=== PATIENT | female | born 1960 | race Caucasian/White ===

== ENCOUNTER → 2019-10-07 06:00 | Outpatient (CLI) | payer OTHER, SELFPAY ==
--- NOTE | 2019-10-07 13:45 | STRESSREP_ITS ---
Stress Test Report Date: 10-07-19 Procedure: Exercise tolerance test/imaging study Indications: Chest pain; dyspnea Consent: Per the patient Procedure: The patient exercised on a Ry protocol for 7 minutes and 30 seconds completing Stage II and 1 minute and 30 seconds of Stage III achieving a peak heart rate of 136 bpm (83 % predicted maximal heart rate) with a peak blood pressure 160/80 mmHg and a peak MET capacity of 9 METs. The baseline ECG demonstrated sinus bradycardia; low voltage QRS; nonspecific T wave abnormality. The peak exercise ECG demonstrated difficult somatic/motion artifact with no obvious ECG changes. There were no cardiac dysrhythmias pretest, during exercise, or recovery. The functional capacity was considered average. There was no complaint of chest discomfort during exercise or recovery. The examination was discontinued secondary to dyspnea. Impression: 1. Technically adequate (percent predicted maximal heart rate greater than 85%) exercise tolerance test 2. Peak exercise ECG with no obvious ECG changes 3. There were no cardiac dysrhythmias pretest, during exercise, or recovery 4. Nuclear images pending Myocardial perfusion imaging study: Technique: The patient was injected with 11.0 mCi of technetium 99m Cardiolite and subsequently rest SPECT Cardiolite nuclear imaging was obtained in the hor izontal long, vertical long, and short axis views. The patient exercised on a Ry protocol for 7 minutes and 30 seconds completing Stage II and 1 minute and 30 seconds of Stage III achieving a peak heart rate of 136 bpm (83 % predicted maximal heart rate) with a peak blood pressure 160/80 mmHg and a peak MET capacity of 9 METs. The patient was injected with 33.0 mCi of technetium 99m Cardiolite and subsequently stress SPECT Cardiolite nuclear imaging was obtained in the horizontal long, vertical long, and short axis views. A gated Cardiolite study at peak stress was obtained. Interpretation: Rest and stress SPECT Cardiolite nuclear imaging status post realignment, normalization, and attenuation correction, demonstrates the appearance of body motion during image acquisition and at rest of relative uniform tracer uptake. Status post stress there is an area of diminished tracer uptake in portions of the mid anterior segments. There is end systolic thickening and brightening. The gated Cardiolite study demonstrates myocardial thickening and inward wall motion. The reported LVEF is 65 %. Impression: 1. Rest and stress SPECT Cardiolite nuclear imaging demonstrate the appearance of body motion during image acquisition and at rest of relative uniform tracer uptake, however, status post stress there is an area of diminished tracer uptake in portions of the mid anterior segments centrally compatible with the effects of body motion during image acquisition, however, an area of myocardial ischemia cannot necessarily be excluded. 2. The gated Cardiolite study reports an LVEF of 65 %. This note was generated with [employer] software. It may contain incorrect words, spelling, and punctuation that were not noted in checking the note before signing.
== END ==
PROVIDERS: Family Provider Internal Medicine; PCP Internal Medicine; Referring Provider Internal Medicine; Visit Provider Internal Medicine
DX: R06.09 Other forms of dyspnea (principal)
CPT/HCPCS: 78452; 93017; A9500; A4216

== ENCOUNTER 2022-03-09 06:34 | Inpatient (IN) | payer OTHER, SELFPAY ==
[2022-03-09] VITALS (14 sets, daily range): BP systolic 110–158; BP diastolic 56–84; PULSE 45–76; RESP 16–18; TEMP 35.5–36.6; O2SAT 94–100; BMI 38.3
[2022-03-09] MEDS: Lactated Ringers 1,000 ML 15 ML IV ×5 (07:23→15:06)
--- NOTE | 2022-03-09 07:27 | PCM.OPRPT ---
Problems Associated Problem List Diagnoses (1) Lumbar stenosis: Report of Operation Date of Procedure: 03/09/22 Pre-Operative Diagnosis: 1. Lumbar stenosis, L4-5 with spondylosis 2. Lumbar degenerative disc disease L4-5 3. Lumbar spondylolisthesis L4-5 Post-Operative Diagnosis: 1. Lumbar stenosis, L4-5 with spondylosis 2. Lumbar degenerative disc disease L4-5 3. Lumbar spondylolisthesis L4-5 Surgery/Procedure Performed:: 1. L4-5 posterior lumbar interbody fusion 2. Insertion of intervertebral biomechanical device x1 3. Structural allograft for spinal fusion 4. L4 bilateral laminectomies, foraminotomies, facetectomies, decompression of bilateral nerve roots 5. L4-5 posterior lateral fusion 6. Pedicle screw fixation 7. Local autograft for spinal fusion 8. Neuro monitoring bilateral upper and bilateral lower extremities Description of Surgical Findings:: The patient is a 61-year-old female with intractable back and leg pain. Image studies confirm the above diagnoses. She has failed conservative treatment to include medication, physical therapy and injections. The patient opted for operative intervention understanding the risk to include but not limited to infection, bleeding, damage to nerves arteries and veins, possibility of spinal fluid leak, nonunion, hardware failure, continued pain, need for further surgery, deep vein thrombosis, pulmonary embolism, heart attack, risk of stroke or . The patient was identified in the preoperative holding area. There she received preoperative IV antibiotics, Ancef, and was then transferred to the operative suite. Once in the operative suite after general endotracheal anesthesia was established, the patient was transferred to the [place] operating table in the prone position. All bony prominences were padded accordingly. The lumbar spine was prepped and draped in a standard surgical fashion. Bear hugger's were not turned on until the drapes were placed and sealed with Ioban. A midline incision was made and taken down to the lumbodorsal fascia. The fascia was divided and subperiosteal dissection was taken to the level of the transverse processes of L4 and L5 bilaterally. Deep retractors were placed. A bone scalpel was used to make cuts in the lamina of L4 and then a series of rongeurs and Kerrisons were used removing the spinous process and lamina of L4. Then facetectomies of greater than 50% were performed as well as foraminotomies, decompressing the bilateral nerve roots. Given the severity of the stenosis, I needed to perform wide bilateral laminectomies and near complete facetectomies in order to decompress the neural elements, thus creating instability necessitating the fusion. I then proceeded with the posterior lateral interbody fusion. The dura and nerve roots were identified and retracted medially, a 15 blade scalpel was used to make an annulotomy at L4-5 on the left. Endplate elevator, curettes and pituitaries were utilized to remove disc material. Endplates were prepared with a rasp. An appropriate sized intervertebral peek cage device measuring 9 mm was packed with morselized cancellous allograft and then impacted into position completing the posterior lumbar interbody fusion at L4-5. I then proceeded with pedicle screw fixation. Starting points were found at the junction of the superior articular process and transverse process of L4 and L5 bilaterally. A power bur was used for the starting points. Pedicle probes were placed bilaterally and then 6.5 x 45 mm screws were placed at L4 and L5 bilaterally. The screws were tested with intraoperative neurophysiologic monitoring and they tested within normal limits. Connecting rods were secured into place with set screws. I then proceeded with the posterior lateral fusion. This was accomplished by decorticating the transverse processes bilaterally at L4 and L5. This decorticated bone was then bridged with local autograft from the decompression as well as morselized cancellous allograft and DBM therefore completing the posterior lateral fusion at L4-5. The incision was thoroughly irrigated. Tisseel was placed over the dura as a hemostatic agent. A deep drain was placed. The fascia was closed with #1 Vicryl, subcutaneous with 2-0 Vicryl, and skin with 2-0 nylon. A sterile dressing was applied with 4 x 4's ABD and tape. Sponge instrument needle counts were correct at the end of the case. Neurophysiologic monitoring was maintained at baseline throughout the duration of the case. Surgeon: Jayson Arias Type of Anesthesia: General Drains: Hemovac Estimated Blood Loss (mL): 225 mL Fluids Replaced: 330 0 cc Grafts/Implants Used: Unified spine, vitae os, DBM Complications None Admit VTE Documentation VTE Present on Admission: No
--- NOTE | 2022-03-09 07:27 | PCM.PN.ORT ---
Subjective Subjective The patient was seen and examined postoperatively in the PACU. She is having some postop soreness at the surgery site. She denies any other complaints including numbness tingling weakness Objective Data Objective Data Vital Signs: Vital Signs Temp Pulse Resp BP Pulse Ox 97.4 F L 62 18 141/68 H 97 03/09/22 07:17 03/09/22 07:17 03/09/22 07:17 03/09/22 07:17 03/09/22 07:17 Oxygen Delivery Method Room Air Weight: 241 lb 6.4 oz Body Mass Index (BMI) 38.3 Lab / Micro Data Micro: Microbiology 03/06/22 09:39 Nasal Secretion SARS-CoV-2 Antigen (Rapid) - Final Physical Exam Const alert, oriented x3 and no apparent distress General Appearance: cooperative and comfortable HEENT normocephalic and head/scalp atraumatic Eyes EOMs intact bilaterally and conjunctivae normal Neck full ROM General: normal visual inspection Chest inspection of chest normal and palpation of chest normal Resp normal respiratory effort and normal air movement Cardio regular rate, regular rhythm and peripheral pulses 2+ throughout Peripheral Pulses: pulses 2+ throughout GI soft to palpation, non-tender and non-distended Back/Spine Back/Spine Narrative: Dressing clean dry and intact. Drain in place and functioning with small amount of serosanguineous fluid in it Cervical Spine: cervical ROM normal Thoracic Spine / Upper Back: normal to inspection Lumbar Spine / Lower Back: normal to inspection Extremity normal to inspection, full ROM, normal capillary refill, no clubbing, cyanosis or edema and no calf tenderness Peripheral Pulses: Yes pulses 2+ throughout Skin no rashes or lesions noted General Skin Exam: no breakdown Neuro oriented x3, CN's II-XII intact bilaterally, moves all extremities, no focal motor deficits, no sensory deficits noted and deep tendon reflexes 2+ bilaterally Motor Exam: strength 5/5 throughout and muscle tone normal throughout Assessment & Plan Assessment/Plan (1) Lumbar stenosis: PLAN: Okay to admit to floor See orders Pain control and mobilization as tolerated, back brace on at all times Continue antibiotics while drain in place
--- NOTE | 2022-03-09 07:27 | PCM.DC.SUM ---
Providers Date of Admission: 03/09/22 Primary Care Physician: Dr. Adriana Marino MD Reason For Visit: lumbar 4-5 posterior lumbar interbody fusion Diagnosis Discharge Diagnosis (1) Lumbar stenosis: Status: Acute Code(s): M48.061 - Spinal stenosis, lumbar region without neurogenic claudication Medications at Discharge Home Medications [place] MonoPure Curcumin EC 2 cap PO DAILY 02/27/22 atorvastatin [Lipitor] 10 mg PO QPM 02/27/22 cholecalciferol (vitamin D3) [Vitamin D3] 50 mcg PO DAILY 02/27/22 cyclobenzaprine 10 mg PO TID PRN 02/27/22 gabapentin 300 mg PO DAILY 02/27/22 gabapentin 600 mg PO QHS 02/27/22 glucosamine-chondroitin [Osteo Bi-Flex] 2 tab PO DAILY 02/27/22 hydrochlorothiazide 25 mg PO DAILY 02/27/22 lactobacillus combination no.8 1 cell PO DAILY 02/27/22 omeprazole magnesium [Prilosec OTC] 20 mg PO DAILY 02/27/22 pyridoxine (vitamin B6) [Vitamin B-6] 100 mg PO DAILY 02/27/22 spironolactone 50 mg PO DAILY 02/27/22 Hospital Course Operations - (L4-5 posterior lumbar interbody fusion, decompression, posterior spinal fusion with instrumentation, use of allograft) Summary of Care Provided Minutes Spent on Discharge: 15 Hospital Course: The patient is a 61-year-old female who underwent L4-5 posterior lumbar interbody fusion, decompression, posterior spinal fusion with instrumentation, use of allograft on 03/09/2022. She was subsequently admitted. The hospitalist was consulted for medical management. She progressed well. Her pain was controlled and she was mobilizing well. No significant medical issues were reported. Her drain was pulled on postoperative day 1. She was subsequently discharged home on 03/11/22 to follow-up with Dr. Arias in 3 weeks Physical Exam Const alert, oriented x3 and no apparent distress General Appearance: cooperative and comfortable HEENT normocephalic and head/scalp atraumatic Eyes EOMs intact bilaterally and conjunctivae normal Neck full ROM General: normal visual inspection Chest inspection of chest normal and palpation of chest normal Resp normal respiratory effort and normal air movement Cardio regular rate, regular rhythm and peripheral pulses 2+ throughout GI soft to palpation, non-tender and non-distended Back/Spine Back/Spine Narrative: Dressing clean dry and intact. Incision well approximated with interrupted sutures in place. No erythema tenderness drainage or fluctuance Cervical Spine: cervical ROM normal Thoracic Spine / Upper Back: normal to inspection Lumbar Spine / Lower Back: normal to inspection Extremity normal to inspection, full ROM, normal capillary refill, no clubbing, cyanosis or edema and no calf tenderness Peripheral Pulses: Yes pulses 2+ throughout Skin no rashes or lesions noted General Skin Exam: no breakdown Neuro oriented x3, CN's II-XII intact bilaterally, moves all extremities, no focal motor deficits, no sensory deficits noted and deep tendon reflexes 2+ bilaterally Motor Exam: strength 5/5 throughout and muscle tone normal throughout Weight / BMI Weight Weight: 241 lb 6.4 oz Body Mass Index (BMI) 38.3 ABG / Lab / Microbiology Data Microbiology: Microbiology 03/06/22 09:39 Nasal Secretion SARS-CoV-2 Antigen (Rapid) - Final D/C Instructions Discharge Diet: No restrictions Discharge Activity: - (No bending twisting or lifting greater than 5 pounds) Lifting Restricted to (Lbs): 5 Call your doctor if your incision/area has: Continuous Slow Oozing, Sudden Increased Bleeding, Increased Pain/ Swelling, Increased Redness, Foul Smelling Discharge and Swelling at the incision site Call your doctor if you observe: Fever of 101 or Higher, Coldness, Increased Pain, Numbness or Tingling, Change in Color, Inability to urinate, Inability to have a bowel movement, Using more than 1 pad per hour, Shortness of breath, Dizziness, Fainting spells, Swelling in the ankles, Chest pain, Prolonged hiccupping, Increased palpitations (irregular heartbeat), Calf discomfort and Uncontrolled pain Change Dressing in: Daily Cleanse incision/area with: Do not get Incision Wet and Keep Dressing Clean & Dry Additional Dressing/Incision Instructions: Change dressing daily with iodine to incision Please Follow Up With: Jayson Arias DO When: 3 weeks Meaningful Use Info Meaningful Use Diagnoses (Choose all that apply): None applicable Discharge Plan Admission Admit Date/Time: 03/09/22 06:34 Attending Provider: Sergey Eddy Primary Care Provider: Adriana Marino Consulting Providers: Kevin Vela Instructions Additional Instructions / Restrictions: 1. During your procedure, you received sedation through your IV. Please follow these instructions for the next 24 hours: Do not drive a motor vehicle, do not drink any alcoholic beverages, and do not sign any legal documents or make personal or business decisions. A responsible adult should stay with you at least 6 hours after the procedure. 2. Keep your surgical site/incision clean and the dressing dry and intact. You may use an ice pack at the surgical site to reduce any swelling or discomfort. 3. Monitor the incision site for any signs or symptoms of infection. Watch for redness, excessive swelling or drainage, or continued pain at the incision site after 3 days. Contact your physician immediately for a fever, chills or a temperature of 101.5? F or greater. 4. Take your medication exactly as prescribed by your physician. Do not attempt to wean yourself off any of your medications even though your pain is improving. This process needs to be carefully monitored by your doctor. Take any antibiotics prescribed exactly as directed and until they are gone. 5. Avoid stretching, bending, pulling, twisting or any sudden movements. Do not bend or twist at the waist. 6. No lifting greater than 5 pounds. 7. Do not operate a motor vehicle, equipment or a power tool while taking pain medication 8. Do not have any manipulation done by a chiropractor or any other physician without first consulting with the surgeon 9. Please contact our office if you are even scheduled for a CT scan or an MRI. 10. Please call us if you have any questions, problems or concerns. Follow-up with Dr. Arias in 3 weeks Discharge Orders/Prescriptions Prescriptions: Continued cyclobenzaprine 10 mg Tablet 10 mg PO TID PRN (Reason: Spasms) RF: 0 gabapentin 600 mg Tablet 600 mg PO QHS RF: 0 atorvastatin [Lipitor] 10 mg Tablet 10 mg PO QPM RF: 0 hydrochlorothiazide 25 mg Tablet 25 mg PO DAILY RF: 0 spironolactone 50 mg Tablet 50 mg PO DAILY RF: 0 gabapentin 300 mg Tablet 300 mg PO DAILY RF: 0 pyridoxine (vitamin B6) [Vitamin B-6] 100 mg Tablet 100 mg PO DAILY RF: 0 glucosamine-chondroitin [Osteo Bi-Flex] 250-200 mg Tablet 2 tab PO DAILY RF: 0 omeprazole magnesium [Prilosec OTC] 20 mg Tablet,Delayed Release (Dr/Ec) 20 mg PO DAILY RF: 0 cholecalciferol (vitamin D3) [Vitamin D3] 50 mcg (2,000 unit) Tablet 50 mcg PO DAILY RF: 0 lactobacillus combination no.8 3 billion cell Capsule 1 cell PO DAILY RF: 0 [place] MonoPure Curcumin EC 417 mg-120 mg- 276 mg-600 mg Capsule 2 cap PO DAILY RF: 0 Discontinued aspirin [Aspir-81] 81 mg Tablet,Delayed Release (Dr/Ec) 81 mg PO DAILY RF: 0 Other Ambulatory Orders: Chest PA and Lateral (Routine) Timeframe: [id number] Facility: [facility] - Location: [facility] Ordered By: Dr. 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 Jayson Arias
--- NOTE | 2022-03-09 08:00 | RAD_ITS ---
STUDY: X-RAY - LUMBAR SPINE REASON FOR EXAM: Female, 61 years old. L4-5 POSTERIOR FUSION WITH INSTRUMENTATION TECHNIQUE: 5 intraoperative view(s) of the lumbar spine were obtained. COMPARISON: None FINDINGS: Intraoperative images demonstrate laminectomy at L4 and L5 with surgical fusion. A disc space is noted. RAD/Lumbar Spine 2 or 3 Views IMPRESSION: Surgical fusion at L4-5 of the lumbar spine. Electronically Signed: Chico Harris DO at 16:55 EDT ,
[2022-03-09] MEDS: Cefazolin 2 GM in 0.9% Normal Saline 100 ML IV (08:33)
[2022-03-09] MEDS: Heparin 10,000 UNITS/10 ML Vial 10000 UNITS (09:20)
[2022-03-09] MEDS: Bupivacaine 0.25% 30 ML Vial (13:30)
[2022-03-09] MEDS: THROMBIN (RECOMBINANT) 20,000 UNIT VIAL 20000 UNIT TOPICAL (13:30)
[2022-03-09] MEDS: Lactated Ringers 1,000 ML 100 ML IV (16:39)
--- NOTE | 2022-03-09 17:29 | PCM.PN.HOSP ---
Subjective Subjective 61-year-old female with a history of lumbar stenosis presented to the hospital today for an elective laminectomy and fusion. She was seen almost immediately on arrival to the floor and is still recovering from anesthesia so she was little bit groggy Objective Data Objective Data Vital Signs: Vital Signs Temp Pulse Resp BP Pulse Ox 96.8 F L 53 L 16 118/74 97 03/09/22 16:30 03/09/22 16:30 03/09/22 16:30 03/09/22 16:30 03/09/22 16:30 Oxygen Flow Rate (L/min) 3 Oxygen Delivery Method Nasal Cannula Weight: 241 lb 6.4 oz Body Mass Index (BMI) 38.3 Intake & Output: Intake and Output for Last 24 Hours 03/08/22 03/09/22 03/10/22 03:59 03:59 03:59 Intake Total 4134.92 / 4134.92 Output Total 70 / 70 Balance 4064.92 / 4064.92 Lab / Micro Data Micro: Microbiology 03/06/22 09:39 Nasal Secretion SARS-CoV-2 Antigen (Rapid) - Final Radiography Diagnostic Testing: Radiology Impression Lumbar Spine X-Ray 03/09/22 08:00 IMPRESSION: Surgical fusion at L4-5 of the lumbar spine. Electronically Signed: Ch[place] Harris DO at 16:55 EDT Reading Location ID and State: [facility] / [place] Tel [phone], Service support , Physical Exam Const no apparent distress Constitutional Narrative: Sleepy but arousable from anesthesia General Appearance: cooperative HEENT normocephalic and moist oral mucous membranes Eyes PERRL, EOMs intact bilaterally and conjunctivae normal Neck supple and no JVD Resp normal respiratory effort, no retractions, no use of accessory muscles and clear to auscultation bilaterally Auscultation: Negative for crackles, rales, rhonchi or wheezes Cardio regular rate, regular rhythm, S1 normal heart sound, S2 normal heart sound and no murmurs GI soft to palpation, non-tender and non-distended; Negative for hepatosplenomegaly Extremity no clubbing, cyanosis or edema Skin no rashes or lesions noted Neuro no focal motor deficits and no sensory deficits noted Psych affect normal Appearance: appropriate Assessment & Plan Assessment/Plan (1) Lumbar stenosis: PLAN: 1. Lumbar stenosis status post bilateral L4 laminectomies with an L4-5 fusion/chronic back pain ?Pain management per primary ?PT/OT ?Can continue her home pain regimen including as needed Flexeril, gabapentin at night 2. HTN/HLD ?Blood pressure stable ?With her home hydrochlorothiazide, Lipitor, Aldactone ?We will check labs in the morning 3. GERD ?Stable ?Continue with PPI She does have a remote history of a PE, she was on anticoagulation for a period of time but she is no longer on any anticoagulation. DVT: SCDs Charges/Coding Visit Charges Inpatient E&M: 10611 Subs Hosp L2
[2022-03-09] MEDS: Morphine 4 MG/ML Syringe IV (20:19)
[2022-03-09] MEDS: Cefazolin 1 GM/50 ML BAG IV (20:32)
[2022-03-09] MEDS: Acetaminophen 500 MG Tablet 1000 MG PO (21:31)
[2022-03-09] MEDS: oxyCODONE 5 MG Tablet PO (21:31)
[2022-03-09] MEDS: Atorvastatin Calcium 10 MG Tablet PO (21:31)
[2022-03-09] MEDS: Gabapentin 600 MG Tablet PO (21:32)
[2022-03-10] VITALS (12 sets, daily range): BP systolic 112–140; BP diastolic 47–69; PULSE 69–96; RESP 18; TEMP 36.7–37; O2SAT 95–100
[2022-03-10] MEDS: Morphine 4 MG/ML Syringe IV (00:43)
[2022-03-10] MEDS: 0.9% Saline Lock 10 ML Syringe IV (00:43)
[2022-03-10] MEDS: Cefazolin 1 GM/50 ML BAG IV (04:19)
[2022-03-10] MEDS: oxyCODONE 5 MG Tablet PO ×5 (04:32→21:57)
[2022-03-10] MEDS: Acetaminophen 500 MG Tablet 1000 MG PO ×3 (06:09→21:59)
--- NOTE | 2022-03-10 07:34 | PN.ORTHO_ITS ---
Subjective Subjective The patient was seen and examined postoperative day 1. She is lying in bed resting comfortably. She is still having some postop soreness but this is well managed with medication. She denies any other complaints including numbness tingling or weakness or changes in bowel or bladder function. She has been up and out of bed without difficulty and is mobilizing well. She denies any other complaints. Objective Data Objective Data Vital Signs: Vital Signs Temp Pulse Resp BP Pulse Ox 98.6 F 74 18 112/57 L 100 03/10/22 04:21 03/10/22 04:37 03/10/22 04:21 03/10/22 04:21 03/10/22 04:21 Oxygen Flow Rate (L/min) 2 Oxygen Delivery Method Room Air Weight: 241 lb 6.4 oz Body Mass Index (BMI) 38.3 Intake & Output: Intake and Output for Last 24 Hours 03/08/22 03/09/22 03/10/22 23:59 23:59 23:59 Intake Total 5373.25 / 5373.25 1182.50 / 1182.50 Output Total 2995 / 2995 770 / 770 Balance 2378.25 / 2378.25 412.50 / 412.50 Lab / Micro Data Micro: Microbiology 03/06/22 09:39 Nasal Secretion SARS-CoV-2 Antigen (Rapid) - Final Radiography Diagnostic Testing: Radiology Impression Lumbar Spine X-Ray 03/09/22 08:00 IMPRESSION: Surgical fusion at L4-5 of the lumbar spine. Electronically Signed: Chico Harris DO at 16:55 EDT Reading Location ID and State: [facility] / [place] Tel [phone], Service support , Physical Exam Const alert, oriented x3 and no apparent distress General Appearance: cooperative and comfortable HEENT normocephalic and head/scalp atraumatic Eyes EOMs intact bilaterally and conjunctivae normal Neck full ROM General: normal visual inspection Chest inspection of chest normal and palpation of chest normal Resp normal respiratory effort and normal air movement Cardio regular rate, regular rhythm and peripheral pulses 2+ throughout GI soft to palpation, non-tender and non-distended Back/Spine normal ROM Back/Spine Narrative: Dressing clean dry and intact. Drain in place and functioning with small amount of serosanguineous fluid present. Drain pulled today. Incision well approximated with interrupted sutures in place. No tenderness erythema drainage or fluctuance Cervical Spine: cervical ROM normal Thoracic Spine / Upper Back: normal to inspection Lumbar Spine / Lower Back: normal to inspection Extremity normal to inspection, full ROM, normal capillary refill, no clubbing, cyanosis or edema and no calf tenderness Peripheral Pulses: Yes pulses 2+ throughout Skin no rashes or lesions noted General Skin Exam: no breakdown Neuro oriented x3, CN's II-XII intact bilaterally, moves all extremities, no focal motor deficits, no sensory deficits noted and deep tendon reflexes 2+ bilaterally Motor Exam: strength 5/5 throughout and muscle tone normal throughout Assessment & Plan Assessment/Plan (1) Lumbar stenosis: PLAN: Continue pain control and mobilization, back brace on when out of bed Drain pulled this morning Okay to discharge home when arrangements made Follow-up with Dr. Arias in 3 weeks for suture removal
[2022-03-10] MEDS: Pyridoxine HCl 100 MG Tablet PO (09:38)
[2022-03-10] MEDS: Spironolactone 50 MG Tablet PO (09:38)
[2022-03-10] MEDS: Gabapentin 300 MG Capsule PO (09:38)
[2022-03-10] MEDS: hydroCHLOROthiazide 25 MG Tablet PO (09:38)
[2022-03-10] MEDS: Pantoprazole Sodium 20 MG Tablet PO (09:38)
[2022-03-10] MEDS: Cholecalciferol (VIT D3) 25 MCG TABLET (1,000 UNITS) 50 MCG PO (09:38)
--- NOTE | 2022-03-10 09:49 | PCM.PN.HOSP ---
Subjective Subjective Able to flex and dorsiflex feet without difficulty. Has questions about hiatal hernia repair. Objective Data Objective Data Vital Signs: Vital Signs Temp Pulse Resp BP Pulse Ox 36.8 C 78 18 114/47 L 98 03/10/22 07:46 03/10/22 07:46 03/10/22 07:46 03/10/22 07:46 03/10/22 07:46 Oxygen Flow Rate (L/min) 2 Oxygen Delivery Method Room Air Weight: 109.497 kg Body Mass Index (BMI) 38.3 Intake & Output: Intake and Output for Last 24 Hours 03/08/22 03/09/22 03/10/22 23:59 23:59 23:59 Intake Total 5373.25 / 5373.25 1182.50 / 1182.50 Output Total 2995 / 2995 770 / 770 Balance 2378.25 / 2378.25 412.50 / 412.50 Lab / Micro Data Micro: Microbiology 03/06/22 09:39 Nasal Secretion SARS-CoV-2 Antigen (Rapid) - Final Radiography Diagnostic Testing: Radiology Impression Lumbar Spine X-Ray 03/09/22 08:00 IMPRESSION: Surgical fusion at L4-5 of the lumbar spine. Electronically Signed: Chico Harris DO at 16:55 EDT Reading Location ID and State: [facility] / [place] Tel [phone], Service support , Physical Exam Const alert and no apparent distress Resp normal respiratory effort, no retractions, no use of accessory muscles and clear to auscultation bilaterally Cardio regular rate, regular rhythm, S1 normal heart sound and S2 normal heart sound GI normal to inspection, nondistended, normoactive bowel sounds, soft to palpation, non-tender and non-distended GI Narrative: small reducible epigastric hernia. Assessment & Plan Assessment/Plan (1) Lumbar stenosis: QUALIFIERS: Neurogenic claudication status: unspecified Qualified Code(s): M48.061 - Spinal stenosis, lumbar region without neurogenic claudication PLAN: 1. Lumbar stenosis: s/p bilateral L4 laminectomies with L4-5 fusion. mgmt per spine drain removed 2. 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 Adrenal nodules, pituitary microadenoma follow up with endocrinology as outpt 5. Colon cancer screening last colonoscopy 11 years ago recommended GI follow up Medically stable for discharge. Will sign off. Please call with questions/concerns. Greater than 35 minutes of which was spent discussing follow up with chronic medical issues (CAD, Castleman disease, routine colon cancer screening, etc.) Charges/Coding Visit Charges Inpatient E&M: 03588 Subs Hosp L3
--- NOTE | 2022-03-10 10:50 | CASEMGMT ---
RN CHRISS Face to Face with patient for initial transition planning/care coordination assessment. RN CM introduced self and role at [facility]. Patient lying in bed, alert and oriented. Patient willing to participate in assessment and is able to answer all questions appropriately. Care providers, pharmacy, and demographics verified. Patient wishes to discharge home, denies need for home health at this time. Patient states she has no further needs or concerns at this time. CM to follow for discharge planning needs that may arise. PCP: Ned Specialists: Hugo, spinal surgeon Preferred Pharmacy: [email or web address] Insurance: [employer], patient concerned with being off work for the next months and current hospital bills. SW notified of possible MAINOR application assistance. Prescription Benefit: yes Living Will/HPOA: none LNOK: sister Living Arrangements: Patient lives alone in a first floor apartment with no steps to enter. Patient states she is indepnedent at home. Transportation: friend DME/HHC: Patient states she has grab bars, cpap, and back brace. Will monitor for possible walker at discharge. Patient to schedule outpatient therapy at follow-up appt with Dr. Arias on 03/30 Disposition Plan: Patient to discharge home with family support and follow-up plans in place. Sarah OSBORNE, RN, CM
--- NOTE | 2022-03-10 13:35 | CASEMGMT ---
RN CHRISS spoke with patient and indicated patient had some financial concerns and seemed depressed. SW met with patient. Introduced self as well as role at [facility]. Patient was willing to talk with SW. Patient was open with SW and shared most of her life story with SW. SW listened and provided emotional support. Patient reports she has a great support system with her hinduism friends. Two of patient's friends have already come into [facility] to see patient. They have offered to give patient a ride home from [facility]. Patient's employer will hold her job for her. SW provided patient with a Medicaid application and encouraged her to complete it and turn it into [facility]. Patient thanked SW for listening to her. SW assured patient that is why SW came to see her and SW was happy she was able to share her thoughts. Odette FOSTER
[2022-03-10] MEDS: cycloBENZAPRine HCl 10 MG Tablet PO ×2 (13:45→21:58)
--- NOTE | 2022-03-10 13:45 | CASEMGMT ---
Addendum entered by Davonte Camejo 03/10/22 16:07: Walker from [employer] has been delivered to pt's room. Original Note: TENZIN BANERJEE NOTE: PT/OT evals have been reviewed. Pt ambulated 200 ft w/CGA. TENZIN CM to room to talk w/pt. Pt states she wishes to return home and would like WW. Pt given list of local DME companies, has no preference, and okay w/[employer]. Pt states is also interested in RTS. She was made aware this is not covered by insurance and made aware of local companies that sell these or on-line/[employer]. She voices understanding. Script for FWW obtained from Dr Arias and faxed to [employer]. Per Dr Arias, pt will stay overnight for further pain mgmt and anticipates d/c home tomorrow. Pt states her friend can take her home tomorrow, but will not be available until 5 PM. TENZIN BANERJEE informed this is okay. Pt denies need for HHC and no needs identified. Pt aware to ask for CM if any further home-going/discharge needs arise. Kenney PAZN TENZIN BANERJEE
[2022-03-10] MEDS: Gabapentin 600 MG Tablet PO (21:58)
[2022-03-10] MEDS: Atorvastatin Calcium 10 MG Tablet PO (21:59)
[2022-03-11] VITALS (7 sets, daily range): BP systolic 128–134; BP diastolic 66–93; PULSE 75–84; RESP 16–18; TEMP 36.4–37.1; O2SAT 94–98
[2022-03-11] MEDS: Acetaminophen 500 MG Tablet 1000 MG PO ×2 (05:41→13:05)
[2022-03-11] MEDS: cycloBENZAPRine HCl 10 MG Tablet PO ×2 (05:41→15:13)
[2022-03-11] MEDS: oxyCODONE 5 MG Tablet PO ×3 (08:40→17:07)
[2022-03-11] MEDS: Cholecalciferol (VIT D3) 25 MCG TABLET (1,000 UNITS) 50 MCG PO (11:56)
[2022-03-11] MEDS: Pyridoxine HCl 100 MG Tablet PO (11:57)
[2022-03-11] MEDS: Gabapentin 300 MG Capsule PO (11:57)
[2022-03-11] MEDS: Spironolactone 50 MG Tablet PO (11:58)
[2022-03-11] MEDS: hydroCHLOROthiazide 25 MG Tablet PO (11:58)
[2022-03-11] MEDS: Pantoprazole Sodium 20 MG Tablet PO (11:59)
== END 2022-03-11 17:15 | disposition home or self-care (01) | DRG 460 ==
LOC: ACINP 06:35 → MS3 08:20
PROVIDERS: Admitting Provider Orthopaedic Surgery; PCP Student in an Organized Health Care Education/Training Program; Referring Provider Orthopaedic Surgery
PROC: 0SG00AJ Fusion of Lumbar Vertebral Joint with Interbody Fusion Device, Posterior Approach, Anterior Column, Open Approach (ICD-10-PCS; CPT 22630; principal; 2022-03-09 07:30)
DX: M48.061 Spinal stenosis, lumbar region without neurogenic claudication (principal); M47.26 Other spondylosis with radiculopathy, lumbar region; M51.36 Other intervertebral disc degeneration, lumbar region; M46.96 Unspecified inflammatory spondylopathy, lumbar region; M43.16 Spondylolisthesis, lumbar region; M46.1 Sacroiliitis, not elsewhere classified; M41.86 Other forms of scoliosis, lumbar region; M85.88 Other specified disorders of bone density and structure, other site; M53.3 Sacrococcygeal disorders, not elsewhere classified; I25.10 Atherosclerotic heart disease of native coronary artery without angina pectoris; D47.Z2 Castleman disease; E27.8 Other specified disorders of adrenal gland; D35.2 Benign neoplasm of pituitary gland; I10 Essential (primary) hypertension; E78.5 Hyperlipidemia, unspecified; K21.9 Gastro-esophageal reflux disease without esophagitis; Z20.822 Contact with and (suspected) exposure to COVID-19; G47.30 Sleep apnea, unspecified; E66.8 Other obesity; Z68.38 Body mass index [BMI] 38.0-38.9, adult; I25.2 Old myocardial infarction; Z79.82 Long term (current) use of aspirin; Z79.899 Other long term (current) drug therapy; Z86.711 Personal history of pulmonary embolism; Z96.653 Presence of artificial knee joint, bilateral
CPT/HCPCS: 72100; 76000; 87811; 97162; 97530; 99251; C1713; C9803; J7120; A4216; G0463; J2405

== ENCOUNTER 2022-08-22 11:48 | Day surgery (SDC) | payer OTHER, SELFPAY ==
[2022-08-22] VITALS (7 sets, daily range): BP systolic 104–137; BP diastolic 53–78; PULSE 54–59; RESP 16; TEMP 36.2–36.6; O2SAT 99–100; BMI 39.6
--- NOTE | 2022-08-22 | IMM_PTH ---
PATIENT: SALVADOR OLIVAS LOC: EN U#:[id number] AGE/SX: 61/F ROOM: RE08/22/[address]: Dr. Salvatore Du DO : 1960 BED: DIS: 08/22/2022 SPEC #: [id number] RECD: 08/24/22 10:04 STATUS: GARRY REQ #: [id number] EUDARDO: 08/22/22 00:[address]: Salvatore Du DEPT: IMMUNOHISTOCHEMISTRY RECD BY: Michelle Boggs ENTERED: 08/24/22 10:05 SP TYPE: IMMUNO OTHR DR: Dr. Adriana Marino MD Tissues: Esophagus, NOS Procedures: P53 (initial) KI-67 (add) PHYSICIAN & INSTITUTION [place] [phone] SPECIMEN INFORMATION: Tissue Source: Distal esophagus biopsy Clinical Info: GERD, epigastric pain, screening Specimen Number: [id number] CPT code: 32533, 85369 METHODOLOGY: Deparaffinized sections of prefer/formalin-fixed tissue or PAP/DQ stained slides are incubated with monoclonal/polyclonal antibodies/oligonucleotide probes. Localization is made via biotin free immunoperoxidase method. Appropriate controls are performed and reacted as expected. Results on target cell population are indicated in the following table: RESULTS: ANTIBODY / CLONE RESULT P53 (DO-7) negative Ki-67 (30-9) positive, very low These tests were developed and their performance characteristics determined by [facility]. They may not have been cleared or approved by the U.S. Food and Drug Administration. The FDA has determined that such clearance or approval is not necessary. The above immunohistochemical/dualISH markers are ordered and reviewed by the Pathologist. INTERPRETATION: Distal esophagus, biopsy: Negative for dysplasia. SJ:cherrie 08/25/2022
[2022-08-22] MEDS: Lactated Ringers 1,000 ML 15 ML IV (12:20)
--- NOTE | 2022-08-22 12:45 | COLBX_PTH ---
PATIENT: SALVADOR OLIVAS LOC: EN U#:[id number] AGE/SX: 61/F ROOM: RE08/22/[address]: Dr. Salvatore Du DO : 1960 BED: DIS: 08/22/2022 SPEC #: [id number] RECD: 08/22/22 15:39 STATUS: GARRY REAyana #: [id number] EDUARDO: 08/22/22 12:[address]: Salvatore Du DEPT: SURGICAL PATHOLOGY RECD BY: Zaria Laboy ENTERED: 08/23/22 08:05 SP TYPE: COLON BX OTHR DR: Dr. 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 Chronic inflammation. Negative for dysplasia. See comment. MINI:cherrie 08/24/2022 COMMENT Alcian blue/PAS stain with matched control is used in the evaluation of the specimen. MICROSCOPIC DESCRIPTION Slides are reviewed. GROSS DESCRIPTION Received in fixative is one container labeled with the patient's name and designated distal esophagus biopsy. The specimen consists of two irregular fragments of light bautista soft tissue that in aggregate measure 1 x 0.5 x 0.1 cm. The specimen is totally submitted in one cassette. / MINI:cherrie 08/23/2022 TC:5 CPT: 01582, 60766
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
--- NOTE | 2022-08-22 13:30 | OP.EGD_ITS ---
Patient Name: Vandana Dorado Procedure Date: 08/22/2022 12:52 PM Date of : 1960 Age: 61 Procedure: Upper GI endoscopy Indications: Heartburn, Suspected esophageal reflux Providers: Salvatore Du DO Referring MD: Salvatore Du DO Medicines: Monitored Anesthesia Care Patient Profile: This is a 61 year old female. Refer to note in patient chart for documentation of history and physical. Patient has symptoms of chronic dyspepsia, chronic heartburn and chronic nausea. Complications: No immediate complications. Procedure: Pre-Anesthesia Assessment: - Prior to the procedure, a History and Physical was performed, and patient medications and allergies were reviewed. The patient is competent. The risks and benefits of the procedure and the sedation options and risks were discussed with the patient. All questions were answered and informed consent was obtained. Patient identification and proposed procedure were verified by the physician in the pre-procedure area. Mental Status Examination: alert and oriented. Airway Examination: normal oropharyngeal airway and neck mobility. Respiratory Examination: clear to auscultation. CV Examination: normal. Prophylactic Antibiotics: The patient does not require prophylactic antibiotics. Prior Anticoagulants: The patient has taken no previous anticoagulant or antiplatelet agents. ASA Grade Assessment: II - A patient with mild systemic disease. After reviewing the risks and benefits, the patient was deemed in satisfactory condition to undergo the procedure. The anesthesia plan was to use monitored anesthesia care (MAC). Immediately prior to administration of medications, the patient was re-assessed for adequacy to receive sedatives. The heart rate, respiratory rate, oxygen saturations, blood pressure, adequacy of pulmonary ventilation, and response to care were monitored throughout the procedure. The physical status of the patient was re-assessed after the procedure. After obtaining informed consent, the endoscope was passed under direct vision. Throughout the procedure, the patient's blood pressure, pulse, and oxygen saturations were monitored continuously. The pediatric colonoscope was introduced through the mouth, and advanced to the second part of duodenum. The upper GI endoscopy was accomplished without difficulty. The patient tolerated the procedure well. Scope In: 1:03:19 PM Scope Out: 1:07:23 PM Total Procedure Duration Time 0 hours 4 minutes 4 seconds Findings: LA Grade A (one or more mucosal breaks less than 5 mm, not extending between tops of 2 mucosal folds) esophagitis with no bleeding was found 38 to 39 cm from the incisors. Biopsies were taken with a cold forceps for histology. Verification of patient identification for the specimen was done. Estimated blood loss was minimal. A small hiatal hernia was present. The second portion of the duodenum was normal. Impression: - LA Grade A reflux esophagitis. Biopsied. - Small hiatal hernia. - Normal second portion of the duodenum. Recommendation: - Discharge patient to home. - Resume previous diet. - Continue present medications. - Await pathology results. Procedure Code(s): --- Professional --- 13360, Esophagogastroduodenoscopy, flexible, transoral; with biopsy, single or multiple CPT copyright 2017 [employer]. All rights reserved. The codes documented in this report are preliminary and upon certified procedural coder review may be revised to meet current compliance requirements. Salvatore Du DO 08/22/2022 1:29:54 PM This report has been signed electronically. Number of Addenda: 0 Note Initiated On: 08/22/2022 12:52 PM
--- NOTE | 2022-08-22 13:30 | OP.CCLET_ITS ---
08/22/2022 Adriana Marino Md Re : Upper GI endoscopy procedure for Vandana Dorado Dear Ned This procedure was performed on Monday, August 22, 2022. My impressions and recommendations are as follows: Impressions : - LA Grade A reflux esophagitis. Biopsied. - Small hiatal hernia. - Normal second portion of the duodenum. Recommendations : - Discharge patient to home. - Resume previous diet. - Continue present medications. - Await pathology results. My findings are described in the full procedure note, which is enclosed. If I can be of further assistance, please feel free to contact me at . Sincerely, Salvatore Du, 08/22/2022 1:29:54 PM This report has been signed electronically.
--- NOTE | 2022-08-22 13:32 | OP.CCLET_ITS ---
08/22/2022 Adriana Marino Md Re : Colonoscopy procedure for Vandana Dorado Dear Ned This procedure was performed on Monday, August 22, 2022. My impressions and recommendations are as follows: Impressions : - The entire examined colon is normal on direct and retroflexion views. - No specimens collected. Recommendations : - Discharge patient to home. - Resume previous diet. - Continue present medications. - Repeat colonoscopy in 10 years for screening purposes. My findings are described in the full procedure note, which is enclosed. If I can be of further assistance, please feel free to contact me at . Sincerely, Salvatore Du, 08/22/2022 1:32:10 PM This report has been signed electronically.
--- NOTE | 2022-08-22 13:32 | OP.COLON_ITS ---
Patient Name: Vandana Dorado Procedure Date: 08/22/2022 1:07 PM Date of : 1960 Age: 61 Procedure: Colonoscopy Indications: Screening for colorectal malignant neoplasm Providers: Salvatore Du DO Referring MD: Salvatore Du DO Medicines: Monitored Anesthesia Care Patient Profile: This is a 61 year old female. Refer to note in patient chart for documentation of history and physical. Patient has symptoms of chronic dyspepsia, chronic heartburn and chronic nausea. Last Colonoscopy: 10 years ago. Complications: No immediate complications. Procedure: Pre-Anesthesia Assessment: - Prior to the procedure, a History and Physical was performed, and patient medications and allergies were reviewed. The patient is competent. The risks and benefits of the procedure and the sedation options and risks were discussed with the patient. All questions were answered and informed consent was obtained. Patient identification and proposed procedure were verified by the physician in the pre-procedure area. Mental Status Examination: alert and oriented. Airway Examination: normal oropharyngeal airway and neck mobility. Respiratory Examination: clear to auscultation. CV Examination: normal. Prophylactic Antibiotics: The patient does not require prophylactic antibiotics. Prior Anticoagulants: The patient has taken no previous anticoagulant or antiplatelet agents. ASA Grade Assessment: II - A patient with mild systemic disease. After reviewing the risks and benefits, the patient was deemed in satisfactory condition to undergo the procedure. The anesthesia plan was to use monitored anesthesia care (MAC). Immediately prior to administration of medications, the patient was re-assessed for adequacy to receive sedatives. The heart rate, respiratory rate, oxygen saturations, blood pressure, adequacy of pulmonary ventilation, and response to care were monitored throughout the procedure. The physical status of the patient was re-assessed after the procedure. After I obtained informed consent, the scope was passed under direct vision. Throughout the procedure, the patient's blood pressure, pulse, and oxygen saturations were monitored continuously. The pediatric colonoscope was introduced through the anus and advanced to the cecum, identified by appendiceal orifice and ileocecal valve. The colonoscopy was performed without difficulty. The patient tolerated the procedure well. The quality of the bowel preparation was good. Scope In: 1:09:45 PM Scope Withdrawal Time 0 hours 8 minutes 50 seconds Scope Out: 1:23:50 PM Total Procedure Duration Time 0 hours 14 minutes 5 seconds Findings: The perianal and digital rectal examinations were normal. The entire examined colon appeared normal on direct and retroflexion views. Impression: - The entire examined colon is normal on direct and retroflexion views. - No specimens collected. Recommendation: - Discharge patient to home. - Resume previous diet. - Continue present medications. - Repeat colonoscopy in 10 years for screening purposes. Procedure Code(s): --- Professional --- G0121, Colorectal cancer screening; colonoscopy on individual not meeting criteria for high risk CPT copyright 2017 [employer]. All rights reserved. The codes documented in this report are preliminary and upon ux designer review may be revised to meet current compliance requirements. Salvatore Du DO 08/22/2022 1:32:10 PM This report has been signed electronically. Number of Addenda: 0 Note Initiated On: 08/22/2022 1:07 PM
== END 2022-08-22 14:18 | disposition home or self-care (01) ==
LOC: EN 11:49 → AC 11:50
PROVIDERS: PCP Student in an Organized Health Care Education/Training Program; Referring Provider Student in an Organized Health Care Education/Training Program; Visit Provider Internal Medicine Gastroenterology
PROC: 0DJD8ZZ Inspection of Lower Intestinal Tract, Via Natural or Artificial Opening Endoscopic (ICD-10-PCS; CPT 45378; principal; 2022-08-22 12:40)
DX: Z12.11 Encounter for screening for malignant neoplasm of colon (principal); D47.Z2 Castleman disease; K44.9 Diaphragmatic hernia without obstruction or gangrene; K21.00 Gastro-esophageal reflux disease with esophagitis, without bleeding; I25.10 Atherosclerotic heart disease of native coronary artery without angina pectoris; G25.81 Restless legs syndrome; M19.90 Unspecified osteoarthritis, unspecified site; Z85.828 Personal history of other malignant neoplasm of skin; Z86.711 Personal history of pulmonary embolism
CPT/HCPCS: G0121; 43239; 88305; 88313; 88341; 88342; J7120; J2405

== ENCOUNTER → 2022-10-17 | Outpatient (CLI) | payer OTHER, SELFPAY ==
[2022-10-17 10:42] LABS: Absolute Neutrophil Count 2.4 X10^3/uL (2.0-7.7); Basophil# 0.03 X10^3/uL; Basophil% 0.6 % (0-1); Eosinophil# 0.07 X10^3/uL; Eosinophils% 1.5 % (0-5); Hematocrit 42.4 % (37-47); Hemoglobin 13.1 g/dL (12.0-15.0); Lymphocyte % 37.5 % (19-41); Mean Corp Hgb Conc 30.9 g/dL (32-36); Mean Corpuscular Hgb 28.4 pg (27.0-32.0); Mean Platelet Vol. 12.4 fl (6.2-12.0); Monocyte# 0.52 X10^3/uL; Monocyte% 10.8 % (0-10); NRBC Flagged by Analyzer 0 % (0-5); Neutrophil # 2.37 X10^3/uL (2.7-7.7); Neutrophil % 49.4 % (47-70); Platelet Count 226 K/mm3 (150-450); RBC Distribution Width CV 14.1 % (11.6-14.6); RBC Distribution Width SD 47.9 fl (35.1-43.9); Red Blood Count 4.61 M/mm3 (4.2-5.4); White Blood Count 4.8 K/mm3 (4.4-11.0)
[2022-10-17 11:03] LABS: Hemoglobin A1c 5.5 % (3.8-5.6)
[2022-10-17 11:24] LABS: ALB/GLOB Ratio 0.9 RATIO (0.9-2.4); AST(SGOT) 18 U/L (15-37); Alanine Aminotransfer ALT/SGPT 20 U/L (13-56); Albumin, Serum 3.5 g/dL (3.2-5.0); Alkaline Phosphatase 81 U/L (45-117); Amylase 53 U/L (25-115); Anion Gap 3 (5-15); BUN 15 mg/dL (7-18); BUN/Creat Ratio 17.6 RATIO (10-20); Calcium,Total 9.8 mg/dL (8.5-10.1); Chloride 106 mmol/L (98-107); Creatinine, Serum 0.85 mg/dL (0.55-1.02); EST Glomerular Filtration Rate 72 mL/min (>60); Est Glom Filt Rate - Afr Amer 87 mL/min (>60); Globulin 3.9 g/dL (2.2-4.2); Glucose 81 mg/dL (74-106); Lipase 142 U/L (73-393); Potassium 4.2 mmol/L (3.5-5.1); Protein, Total 7.4 g/dL (6.4-8.2); Sodium Level 140 mmol/L (136-145)
[2022-10-18 14:09] LABS: Endomysial Antibody IgA Negative (Negative)
[2022-10-18 14:35] LABS: Immunoglobulin A 183 mg/dL (87-352); t-Transglutaminase IgA <2 U/mL (0-3)
== END | disposition home or self-care (01) ==
PROVIDERS: Nurse Practitioner Adult Health; PCP Student in an Organized Health Care Education/Training Program; Visit Provider Internal Medicine Gastroenterology
DX: R10.13 Epigastric pain (principal); K21.9 Gastro-esophageal reflux disease without esophagitis; K22.70 Barrett's esophagus without dysplasia
CPT/HCPCS: 36415; 80053; 82150; 82784; 83036; 83516; 83690; 85025; 86255

== ENCOUNTER → 2022-10-18 | Outpatient (CLI) | payer OTHER, SELFPAY ==
[2022-10-19 20:43] LABS: Fats, Neutral Normal (.); Fats, Total Increased (.)
[2022-10-24 14:52] LABS: Pancreatic Elastase, Fecal 211 (>200)
== END | disposition home or self-care (01) ==
LOC: LAB 11:11
PROVIDERS: PCP Student in an Organized Health Care Education/Training Program; Visit Provider Internal Medicine Gastroenterology
DX: R10.13 Epigastric pain (principal); K21.9 Gastro-esophageal reflux disease without esophagitis; K22.70 Barrett's esophagus without dysplasia
CPT/HCPCS: 82653; 82705

== ENCOUNTER → 2022-10-27 | Outpatient (CLI) | payer OTHER, SELFPAY ==
--- NOTE | 2022-10-27 11:00 | US_ITS ---
STUDY: ABDOMINAL ULTRASOUND - RIGHT UPPER QUADRANT REASON FOR VISIT: Female, 62 years old epigastric pain -- RUQ TECHNIQUE: Ultrasound evaluation of the right upper quadrant was performed with real-time and static iniguez-scale imaging. TECHNICAL QUALITY: Adequate. COMPARISON: None. FINDINGS: Liver: The liver measures 17.5 cm. There is normal echogenicity of the liver. The bile ducts are within normal limits. There is hepatic color flow. The direction of portal flow is hepatopetal. There is no demonstrated mass lesion. Gallbladder: Normal distended gallbladder. The gallbladder wall measures 2 mm. There is a negative sonographic Olivo''s sign. There is no pericholecystic fluid. There are no gallstones. Common Bile Duct (C.B.D.): The common bile duct measures 5 mm. Pancreas: Normal size of the head, body and tail of the pancreas. There is normal echogenicity of the pancreas. There is no demonstrated pancreatic mass or cyst. Right Kidney: Normal size of the right kidney. The right kidney measures 9.8 cm. Normal renal cortex. The right cortex measures 1.7 cm. There is no demonstrated renal mass or cyst. There is no right hydronephrosis. US/Abdomen Limited IMPRESSION: Normal right upper quadrant ultrasound examination. Electronically Signed: Mike Carcamo MD at 9:51 EST ,
== END | disposition home or self-care (01) ==
LOC: US 10:59
PROVIDERS: PCP Student in an Organized Health Care Education/Training Program; Visit Provider Nurse Practitioner Adult Health
DX: R10.13 Epigastric pain (principal); R10.11 Right upper quadrant pain
CPT/HCPCS: 76705

== ENCOUNTER → 2022-11-09 | Outpatient (CLI) | payer OTHER, SELFPAY ==
[2022-11-09 17:30] LABS: Erythrocyte Sedimentation Rate 19 mm/hr (0-30)
[2022-11-09 18:09] LABS: CRP 5.57 mg/L (0.0-3.0)
[2022-11-13 14:07] LABS: Anti-Centromere B Ab <0.2 AI (0.0-0.9); Anti-Chromatin <0.2 AI (0.0-0.9); Anti-Jo <0.2 AI (0.0-0.9); Anti-Scleroderma-70 AB <0.2 AI (0.0-0.9); RNP Ab 0.4 AI (0.0-0.9); SJOGREN'S Anti-SS-A test < 0.2 AI (0.0-0.9); SJOGREN'S Anti-SS-B test < 0.2 AI (0.0-0.9); Smith Ab <0.2 AI (0.0-0.9)
[2022-11-13 16:08] LABS: Cytoplasmic Ab (C-ANCA) <1:20 titer (Neg:<1:20)
[2022-11-13 19:02] LABS: Anti-Mitochondrial AB <20.0 Units (0.0-20.0); Anti-dsDNA Ab 1 IU/mL (0-9)
[2022-11-13 19:09] LABS: Anti-Smooth Muscle ABS 7 Units (0-19); Perinuclear Ab (P-ANCA) <1:20 titer (Neg:<1:20)
== END | disposition home or self-care (01) ==
LOC: LAB 15:51
PROVIDERS: PCP Student in an Organized Health Care Education/Training Program; Visit Provider Nurse Practitioner Adult Health
DX: R10.13 Epigastric pain (principal); K90.9 Intestinal malabsorption, unspecified
CPT/HCPCS: 36415; 83516; 85652; 86140; 86225; 86235; 86256

== ENCOUNTER → 2022-11-13 | Outpatient (CLI) | payer OTHER, SELFPAY ==
[2022-11-15 14:53] LABS: Giardia Lamblia, Stool EIA Negative (Negative)
[2022-11-15 20:56] LABS: Calprotectin, Stool 64 ug/g (0-120)
== END | disposition home or self-care (01) ==
PROVIDERS: PCP Student in an Organized Health Care Education/Training Program; Referring Provider Nurse Practitioner Adult Health; Visit Provider Nurse Practitioner Adult Health
DX: R10.13 Epigastric pain (principal); K90.9 Intestinal malabsorption, unspecified; K58.9 Irritable bowel syndrome, unspecified
CPT/HCPCS: 83630; 83993; 87329

== ENCOUNTER → 2022-12-12 | Outpatient (CLI) | payer OTHER, SELFPAY ==
--- NOTE | 2022-12-12 09:28 | NM_ITS ---
CLINICAL: 62-year-old female with history of postprandial abdominal pain. RADIONUCLIDE HEPATOBILIARY SCINTIGRAPHY COMPARISON: Abdominal ultrasound report 10/27/2022 FINDINGS: Following the intravenous administration of 5.8 mCi of 99m Tc Mebrofenin, hepatobiliary images reveal: 1. Relatively prompt and homogeneous radiopharmaceutical concentration is noted by a normal sized liver. No parenchymal defects are identified. 2. Gallbladder activity is identified at 15 minutes post radiopharmaceutical administration. 3. Small intestinal tract is observed at 30 minutes following tracer injection. 4. Washout of the radiopharmaceutical by the hepatic parenchyma appears qualitatively normal. Cholecystokinin (0.02 ug/kg) was administered intravenously over a 30-minute period. The post CCK gallbladder ejection fraction calculated at 20 minutes following Cholecystokinin administration was noted to be 52.0 % (normal greater than 35%). During 30 minutes of post CCK imaging, there is no scintigraphic evidence of reflux of the radiotracer into the common hepatic duct or refilling of the gallbladder. NM/Hepatobilliary Img w/Pharm Int IMPRESSION: 1. NORMAL 99m Tc Mebrofenin hepatobiliary imaging examination with Cholecystokinin. A. A gallbladder ejection fraction calculated to be greater than 35% following the administration of Cholecystokinin makes the probability of functional hepatobiliary disease (gallbladder and/or sphincter of Oddi dyskinesia) and/or organic hepatobiliary disease (chronic acalculous cholecystitis and/or cystic duct syndrome) to be low. (Yrn Blair et al, Journal of Nuclear Medicine 32:1695, 1991). Electronically Signed: Mike Wright, at 21:35 EST ,
== END | disposition home or self-care (01) ==
LOC: NM 09:25
PROVIDERS: PCP Student in an Organized Health Care Education/Training Program; Referring Provider Nurse Practitioner Adult Health; Visit Provider Nurse Practitioner Adult Health
DX: R10.13 Epigastric pain (principal)
CPT/HCPCS: 78227; A9537; J2805

== ENCOUNTER → 2024-01-08 | Outpatient (CLI) | payer OTHER, SELFPAY ==
--- NOTE | 2024-01-08 13:02 | ART_ITS ---
Reason For Study: PVD Procedure A bilateral lower extremity continuous wave Doppler with analog waveform analysis,segmental pressures,and ankle brachial indexes without exercise. Left Segmental Pressures Left brachial= 134mmHg. Left posterior tibial artery = 147mmHg. Left dorsalis pedis artery = 149mmHg. Left digit = 93 mmHg. The left dorsalis pedis waveforms are triphasic. The left posterior tibial artery waveforms are triphasic. Right Segmental Pressures Right brachial= 142mmHg. Right posterior tibial artery = 163mmHg. Right dorsalis pedis artery = 152mmHg. Right digit = 91 mmHg. The right dorsalis pedis waveforms are triphasic. The right posterior tibial artery waveforms are triphasic. Indices The right ankle brachial index by the posterior tibial artery is 1.15. The right ankle brachial index by the dorsalis pedis is 1.07. The right digital-brachial index is .64. The left ankle brachial index by the posterior tibial artery is 1.04. The left ankle brachial index by the dorsalis pedis is 1.05. The left digital-brachial index is .65. VL/Lower Ext Art Exam w/o Exercis Interpretation Summary Right ELLIOTT 1.15, normal. Doppler/PVR waveforms of the right leg normal at rest. TBI and digit waveforms diminished, pedal/digit disease vs spasm. Left ELLIOTT 1.05, normal. Doppler/PVR waveforms of the left leg normal at rest. TB I and digit waveforms diminished, pedal/digit disease vs spasm. Ordering Physician: Ben Balbuena Performed By: Adonis Mccullough RVT
--- NOTE | 2024-01-08 13:02 | VDLE_ITS ---
Reason For Study: R leg pain, L leg pain RIGHT LEFT GSV is normal. GSV is normal. CFV is compressible, spontaneous, phasic, CFV is compressible, spontaneous, phasic, competent and demonstrates normal competent, and demonstrates normal augmentation. augmentation. FV is compressible, spontaneous, phasic, FV is compressible, spontaneous, phasic, competent and demonstrates normal competent and demonstrates normal augmentation. augmentation. POP V is compressible, spontaneous, phasic, POP V is compressible, spontaneous, phasic, competent and demonstrates normal competent and demonstrates normal augmentation. augmentation. T/P Trunk is compressible. T/P Trunk is compressible. PTV is compressible. PTV is compressible. RT PerV is compressible. LT PerV is compressible. Procedure This is a venous duplex using B-mode, color flow and spectral Doppler. Exam performed in department. The exam was diagnostic. A preliminary report was called and/or faxed to Dr. Balbuena. VL/Venous Duplex US - [place] Extrem Interpretation Summary Deep veins of the bilateral lower extremities are patent and compressible segme ntally. There is no evidence of bilateral lower extremity deep vein thrombosis. The bilateral great saphenous veins appear patent and compressible segmentally. Ordering Physician: Ben Balbuena Performed By: Adonis Mccullough, RVT
--- OUTSIDE RECORDS SUMMARY | 2024-01-08 14:23 | XMS RPT_ITS | CCD ---
Author Name Unknown Address [id number] [place] [address] Organization [facility] Care Team Providers Care Brand Engineer Name Role Phone Unavailable Unavailable Unavailable Brenden Suarez Unavailable Unavailable TARAH SALVADOR MD Primary Care Unavailable TARAH SALVADOR MD Consulting Unavailable TARAH SALVADOR MD Attending Unavailable TARAH SALVADOR MD Admitting Unavailable PROVIDER, UNKNOWN Consulting Unavailable PROVIDER, UNKNOWN Consulting Unavailable BOOKER HARRINGTON Primary Care Unavailable BOOKER HARRINGTON Attending Unavailable TARAH SALVADOR MD Consulting Unavailable TARAH SALVADOR MD Referring Unavailable BOOKER HARRINGTON Admitting Unavailable PROVIDER, UNKNOWN Consulting Unavailable PROVIDER, UNKNOWN Consulting Unavailable TARAH SALVADOR MD Primary Care Unavailable TARAH SALVADOR MD Consulting Unavailable TARAH SALVADOR MD Attending Unavailable TARAH SALVADOR MD Admitting Unavailable PROVIDER, UNKNOWN Consulting Unavailable PROVIDER, UNKNOWN Consulting Unavailable TARAH SALVADOR MD Admitting Unavailable TARAH SALVADOR MD Primary Care Unavailable TARAH SALVADOR MD Consulting Unavailable TARAH SALVADOR MD Attending Unavailable PROVIDER, UNKNOWN Consulting Unavailable PROVIDER, UNKNOWN Consulting Unavailable TARAH SALVADOR MD Primary Care Unavailable TARAH SALVADOR MD Consulting Unavailable TARAH SALVADOR MD Attending Unavailable TARAH SALVADOR MD Admitting Unavailable PROVIDER, UNKNOWN Consulting Unavailable PROVIDER, UNKNOWN Consulting Unavailable EVELYN BAUTISTA DO Primary Care Unavailable EVELYN BAUTISTA DO Attending Unavailable TARAH SALVADOR MD Referring Unavailable TARAH SALVADOR MD Consulting Unavailable EVELYN BAUTISTA DO Admitting Unavailable PROVIDER, UNKNOWN Consulting Unavailable PROVIDER, UNKNOWN Consulting Unavailable JAMISON ELI DPM Primary Care Unavailable JAMISON ELI DPM Attending Unavailable JAMISON ELI DPM Admitting Unavailable TARAH SALVADOR MD Consulting Unavailable PROVIDER, UNKNOWN Consulting Unavailable PROVIDER, UNKNOWN Consulting Unavailable Allergies Allergy Classification Reported Allergen(s) Allergy Type Date of Onset Reaction(s) Facility (3 sources) buPROPion; Translations: [bupropion] Drug Allergy 07-21-2016 Codeine allergy (disorder) [facility] Medications Current Medications Medication Drug Class(es) Dates Sig (Normalized) Sig (Original) acetaminophen 325 mg oral capsule (1 source) Start: 02-24-2022 End: 02-26-2022 take 1 capsule by mouth every four hours as needed for pain Tylenol 325 mg oral capsule Dose : 650 mg =, Oral, q4h, PRN as needed for pain, X 2 day(s), # 12 cap(s), 0 Refill(s), 02/26/22 15:20:00 EDT, Pharmacy: [facility]/pharmacy #[id number], 172.7, cm, 02/23/22 22:00:00 EDT, Height Start Date: 02/24/22 Stop Date: 02/26/22 Status: Ordered aspirin 81 mg delayed release oral tablet (3 sources) Nonsteroidal Anti-inflammatory Drug Start: 02-24-2022 aspirin 81 mg oral delayed release tablet Dose : 81 mg = 1 tab(s), Oral, qDay, # 30 tab(s), 1 Refill(s), Pharmacy: [facility]/pharmacy #[id number], 172.7, cm, 02/23/22 22:00:00 EDT, Height Start Date: 02/24/22 Status: Ordered Completed/Discontinued Medications Medication Drug Class(es) Dates Sig (Normalized) Sig (Original) cholecalciferol 2000 unt oral tablet (4 sources) Vitamin D End: 02-04-2016 Problems Active Problems Problem Classification Problem Date Documented Da te Episodic/Chronic Essential hypertension (1 source) Essential (primary) hypertension; Translations: [Essential (primary) hypertension] Onset: 01-17-2023 Chronic Other connective tissue disease (3 sources) Pain in left foot; Translations: [Pain in left foot] Onset: 08-21-2023 Episodic Past or Other Problems Problem Classification Problem Date Documented Da te Episodic/Chronic Gastrointestinal hemorrhage (1 source) Hemorrhage of anus and rectum; Translations: [Hemorrhage of anus and rectum] Onset: 01-17-2023 Episodic Nonspecific chest pain (4 sources) Chest pain; Translations: [Chest pain, unspecified] Episodic Results Test Name Value Interpretation Reference Range Facil ity Vital Signs Date Time Vital Sign Value Performing Clinician Lexi carisa 02-25-2022 12:50-0400 Heart rate 65 /min RAPHAEL YEAGER MD [facility] 02-25-2022 10:55-0400 Body temperature 98.06 [degF] RAPHAEL YEAGER MD [facility] 02-25-2022 10:55-0400 Diastolic blood pressure 62 mm[Hg] RAPHAEL YEAGER MD [facility] 02-25-2022 10:55-0400 Heart rate 62 /min RAPHAEL YEAGER MD [facility] 02-25-2022 10:55-0400 Reason For Taking VItal Signs RAPHAEL YEAGER MD [facility] 02-25-2022 10:55-0400 Respiratory rate 18 /min RAPHAEL YEAGER MD [facility] 02-25-2022 10:55-0400 Systolic blood pressure 118 mm[Hg] RAPHAEL YEAGER MD [facility] 02-25-2022 08:55-0400 Heart rate 62 /min RAPHAEL YEAGER MD [facility] 02-25-2022 08:39-0400 Heart rate 72 /min RAPHAEL YEAGER MD [facility] 02-25-2022 06:50-0400 Body temperature 97.7 [degF] RAPHAEL YEAGER MD [facility] 02-25-2022 06:50-0400 Diastolic blood pressure 68 mm[Hg] RAPHAEL YEAGER MD [facility] 02-25-2022 06:50-0400 Reason For Taking VItal Signs RAPHAEL YEAGER MD [facility] 02-25-2022 06:50-0400 Respiratory rate 18 /min RAPHAEL YEAGER MD [facility] 02-25-2022 06:50-0400 Systolic blood pressure 124 mm[Hg] RAPHAEL YEAGER MD [facility] 02-25-2022 03:49-0400 Body temperature 97.7 [degF] RAPHAEL YEAGER MD [facility] 02-25-2022 03:49-0400 Diastolic blood pressure 60 mm[Hg] RAPHAEL YEAGER MD [facility] 02-25-2022 03:49-0400 Mean blood pressure 81 mm[Hg] RAPHAEL YEAGER MD [facility] 02-25-2022 03:49-0400 Reason For Taking VItal Signs RAPHAEL YEAGER MD [facility] 02-25-2022 03:49-0400 Respiratory rate 18 /min RAPHAEL YEAGER MD [facility] 02-25-2022 03:49-0400 Systolic blood pressure 122 mm[Hg] RAPHAEL YEAGER MD [facility] 02-24-2022 22:40-0400 Mean blood pressure 75 mm[Hg] RAPHAEL YEAGER MD [facility] 02-24-2022 19:25-0400 Mean blood pressure 96 mm[Hg] RAPHAEL YEAGER MD [facility] 02-24-2022 17:30-0400 Diastolic Blood Pressure NBP 74 1 RAPHAEL YEAGER MD [facility] 02-24-2022 17:30-0400 Mean blood pressure 92 mm[Hg] RAPHAEL YEAGER MD [facility] 02-24-2022 17:30-0400 Systolic Blood Pressure NBP 135 1 RAPHAEL YEAGER MD [facility] 02-24-2022 17:00-0400 Diastolic Blood Pressure NBP 69 1 RAPHAEL YEAGER MD [facility] 02-24-2022 17:00-0400 Mean blood pressure 90 mm[Hg] RAPHAEL YEAGER MD [facility] 02-24-2022 17:00-0400 Systolic Blood Pressure NBP 133 1 RAPHAEL YEAGER MD [facility] 02-24-2022 16:30-0400 Diastolic Blood Pressure NBP 65 1 RAPHAEL YEAGER MD [facility] 02-24-2022 16:30-0400 Mean blood pressure 79 mm[Hg] RAPHAEL YEAGER MD [facility] 02-24-2022 16:30-0400 Systolic Blood Pressure NBP 124 1 RAHPAEL YEAGER MD [facility] 02-24-2022 08:05-0400 Heart rate 59 /min RAPHAEL YEAGER MD [facility] 02-23-2022 22:00-0400 Body height 172.7 cm RAPHAEL YEAGER MD [facility] 02-23-2022 22:00-0400 Body weight 108.3 kg RAPHAEL YEAGER MD [facility] 02-23-2022 22:00-0400 Body weight 36.31 kg/m2 RAPHAEL YEAGER MD [facility] Encounters Encounter Date Encounter Type Care Provider Facility Start: 08-21-2023 End: 10-16-2023 ambulatory JAMISON JIMENEZ [facility] Start: 06-11-2023 End: 06-11-2023 ambulatory TARAH ANDRADE [facility] Start: 05-22-2023 End: 05-22-2023 Emergency department patient visit EVELYN PACHECO [facility] Start: 03-08-2023 End: 03-08-2023 ambulatory BOOKER HARRINGTON [facility] Start: 01-17-2023 Encounter for genera l adult medical examination without abnormal findings TARAH ANDRADE [facility] Start: 01-17-2023 [facility] Start: 02-23-2022 End: 02-25-2022 Observation RAPHAEL YEAGER MD [facility] Start: 11-01-2021 End: 11-01-2021 Patient encounter procedure EVELIN JACKIE SILVEIRA [facility] Start: 07-22-2016 End: 07-22-2016 Emergency department patient visit Brenden Suarez Work Phone (unformatted): [phone] Facility:[facility] Start: 07-21-2016 End: 07-21-2016 [facility] Procedure Procedure Detail Performing Clinician Start: 11-26-2014 Arthroplasty of knee AK JESSE YEAGER MD Immunizations Immunization Date Immunization Notes Care Provider Gianna hopper no vaccine administered T [facility] Payers Date Payer Category Payer [employer] ( and others) [id number] 1960 Unknown [id number] 1960 Unknown [id number] 1960 Unknown [id number] 1960 Unknown [id number] [employer] ( and others) [id number] Social History Date Type Detail Facility Never smoker (Ne krystle Smoked) [facility] Sex Assigned At Female [facility] Start: 02-23-2022 Tobacco smoking status Never s moked tobacco (finding) [facility] Functional Status Date Assessment Result Facility 02-25-2022 [facility] 02-25-2022 [facility] 02[facility]25[facility]-25[facility] 02-25[facility] 02-25[facility] 02-25[facility] 02-24-[facility] 02-24-[facility] 02[facility]24[facility] 02-24[facility] 02-23[facility] Mental Status Date Assessment Result Facility 02-25[facility]22 [facility] 03-08-2023 Note Date & Type Note Facility 03-08-2023 Note [facility] CONSULTATION REPORT NAME ACCOUNT SEX AGE ADMIT DISCHARGE PT MED. RECORD# NUMBER DATE DATE TYPE DEISY, [id number] F 62 03/08/2023 2 SALVADOR [id number] ROOM: [facility] DATE OF : 1960 DICTATING PHYSICIAN: Booker Harrington DATE OF CONSULTATION: March 08, 2023 REASON FOR CONSULTATION: Abdominal pain. HISTORY OF PRESENT ILLNESS: Salvador Dorado is a pleasant 62-year-old lady who has abdominal pain which started yesterday. Initially, it was generalized and then moved to the right lower quadrant and now is 8 out of 10 in severity. It is worsened with movement or driving over bumps while coming to the hospital. She had some loose stools yesterday. She has had multiple abdominal surgeries. Here in the emergency room, she was found to have pain in the right lower quadrant. Her temperature is 97.6, pulse 77, blood pressure 134/90. She has a white blood cell count of 11,700, hemoglobin 13.4. Differential showed 66% segs, 26 lymphocytes, 6 monocytes (see report). CAT scan was obtained which showed inflammatory stranding adjacent to the cecum and the appendix, and the proximal appendix is dilated consistent with early acute appendicitis. Appendicolith were noted. She has a small hiatal hernia, cardiomegaly, atelectasis, DJD, and has had a partial hysterectomy by history. No abscess or hematoma or free fluid or free air was noted (see report). The patient still has pain. Last oral intake was yesterday at about 2300 hours. The pain is currently worsened with local palpation in the right lower quadrant. PAST MEDICAL HISTORY: (1) Coronary artery disease. The patient states she had a heart attack about a year ago, but has had no chest pain. (2) The patient has previously had some lung problems, full details are not available. Description sounds like atelectasis, and she states the problem had improved. (3) Elevated BMI. (4) DJD. She has had knee replacement surgery. (5) Back problems. She has had back surgery. (6) Adrenal tumor. (7) No rheumatic heart disease, thyroid disease. (8) She thinks she occasionally has palpitations, full details not available. (9) She states she also had bladder reconstruction . 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 CURRENT MEDICATIONS: See med reconciliation sheet and nursing notes. ALLERGIES: Codeine, Celebrex, and Wellbutrin, details not available. 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 Smoking: None. Ethanol: Rare. Page 1 of 3 SALVADOR DORADO [employer] Report SALVADOR DORADO : 1960 REVIEW OF SYSTEMS: No thyroid, kidney, liver complaints currently, see above for further details. PHYSICAL EXAMINATION: GENERAL: Alert lady who is talkative, appearing to be mildly uncomfortable. VITAL SIGNS: Per nursing notes. SKIN: Normal texture, slightly decreased turgor. HEENT: EOMI, not icteric. Mucosal surfaces normal. NECK: No JVD. No thyromegaly. CHEST: Clear breath sounds. No rales or rhonchi. HEART: Regular rate and rhythm. Soft S1 and S2. No gallops, rubs or murmurs. ABDOMEN: Rounded, healthy scars, small hernia at the umbilicus. She has tenderness in the right lower quadrant with rebound and guarding. Negative psoas. Positive obturator. Positive heel tap. Positive Rovsing's. Equivocal Olivo signs. No mass or hepatosplenomegaly. No true flank tenderness. No thrill. No bruit. No pulsatile mass. EXTREMITIES: Calves: Nontender. Multiple scars on the lower extremities. NEUROLOGIC: Nonfocal. Fair radial upstroke. ASSESSMENT/RECOMMENDATIONS: 1. This is a 62-year-old lady with an approximately 18 hour history of abdominal pain, which is localized in the right lower quadrant with peritoneal signs on physical exam. She has a leukocytosis and a CT worrisome for appendicitis. I have recommended intravenous antibiotics and fluids. I have explained the possibility of appendicitis. I have explained laparoscopic versus open surgery. I have explained the possible need for midline incision and exploration if she does have perforation and peritonitis. I have explained the surgery is done under anesthesia. I have explained the usual surgical risks may include bleeding, pain, infection, scarring, damage to surrounding tissues, possible need for drain placement. I have explained the postoperative instructions, restrictions, and the patient appears to understand, wishes to proceed. I have explained the risk of not operating including spreading infection, damage to surrounding tissues. The patient appears to understand, wishes to proceed, and has no further questions. 2. History of heart disease. No recent symptomatology. I have requested an EKG, which shows sinus bradycardia at 56. She appears to have an inferior infarct (final report is pending). She has no cardiac symptoms currently. 3. Elevated body mass index. Weight is 250 pounds. Body mass index is 39.16 kg/m2. Followup by pr (more content not included)... [facility] Discharge instructions 02-24-2022 Note Date & Type Note Facility 02-24-2022 Hospital Discharg e instructions Patient Education 02/24/2022 18:31:11 3- Heart Cath/PCI radial (08/2018)(CUSTOM) HEART CATHETERIZATION/PCI (radial) Discharge Instructions DIET Drink plenty of fluids for the next 48 hours to help your kidneys flush the heart cath dye out of your system ACTIVITY For the next 48 hours: Do not deep bend the wrist Do not lift, push, or pull anything over 5 pounds Do not use the hand/arm to support your weight when rising from a chair or bed Do not drive For the next 7 days: Do not submerse your procedure site in water Do not swim, wash dishes, or take tub baths You may write, eat, type, and shower WOUND CARE Keep a Band-Aid on your procedure site for the next 3-4 days Change the Band-Aid daily or if it gets wet/soiled AFTER YOU GO HOME, CALL YOUR DOCTOR FOR: Any increase in bruising or tenderness from the procedure site Any redness, pus, or other signs of infection at the site A temperature above 100.5 Severe pain at the site DIAL 911 AND RETURN TO THE HOSPITAL FOR: Any bleeding from the procedure site. The site may be bruised or tender, but it should not be bleeding at any time. If your site begins to bleed, hold firm pressure on it and dial 911 to return to the hospital Any increase in swelling at the procedure site. An increase in swelling could mean the area is bleeding under the skin. Hold firm pressure to the site and dial 911 to return to the hospital Document Released: 11/12/2006 Document Revised: 10/29/2013 Document Reviewed: 11/13/2014 ExitCare Patient Information 2015 [employer]. This information is not intended to replace advice given to you by your health care provider. Make sure you discuss any questions you have with your health care provider. Follow Up Care 02/23/2022 15:44:31 With:Follow up with primary care provider Address: When:5 to 7 days With:Utility Assistance call; Call [phone] Address:Unknown When:1-2 days [facility] Evaluation + Plan note 02-24-2022 Note Date & Type Note Facility Atypical chest pain Abnormal Lexiscan stress test History of non-obstructive CAD - on cath 20 years ago History of: Pituitary microadenoma, Castleman disease, mitral valve prolapse, obesity, chronic back pain Patient will be admitted to [facility] MTS service for further management Atypical chest pain/Abnormal Lexiscan stress test Patient's chest pain not typical for underlying cardiac disease as she had for several hours into the next day and it originated just in her shoulder. Pain is not worse producible and she has no epigastric pain to suggest gastric cause Concern on the stress test for anterior apical and apical segment defects Given her history of CAD and obesity we will go ahead and order ischemic evaluation with cardiac catheterization Heart score: 3 [0.9 to 1.7% risk of MACE] -LEXI score: 2 Start patient on aspirin, statin, beta-kandace and await cath results Risk stratification: Lipid profile: Cholesterol 150 triglycerides 84 HDL 40 LDL 93 HbA1c 5.7 TSH 2.91 Continue patient on her home spironolactone and HCTZ DVT prophylaxis: Heparin by weight CODE STATUS: Full code Please see attending addendum Addendum by RAPHAEL YEAGER MD on February 24, 2022 21:55:17 EDT Interviewed and examined the patient in the presence of the resident. Essential elements of the case including history and physical exam reviewed and confirmed. Agree with assessment and plan. Patient had atypical chest pain but had a positive stress test with risk factors. Proceed with cardiac catheterization. Explained procedural details for cardiac cath. Enquired about intolerance to antiplatelet therapy, GI bleeding, planned surgery etc. Explained potential risks including but not limited to AK, stroke, , bleeding, infection, renal failure etc. Patient expressed understanding and agreement with proceeding with Cath Diagnostic Tests Pending * Stool for Occult Blood (Lab) 02/25/22 [facility] Evaluation + Plan note Note Date & Type Note Facility Evaluation + Plan note No data available for this section [facility] Hospital Discharge instructions Note Date & Type Note Facility Hospital Discharge instructions No data available for this section [facility] Progress note Note Date & Type Note Facility Progress note No data available for this section [facility] Discharge Instructions No hospital discharge instructions.No hospital discharge instructions. Summary Purpose Family History No Family History Records FoundNo Family History Records FoundNo Family History Records FoundNo Family History Records FoundNo Family History Records Found Advance Directives No Advanced Directives Records FoundNo Advanced Directives Records FoundNo Advanced Directives Records FoundNo Advanced Directives Records FoundNo Advanced Directives Records Found Additional Source Comments INFORMATION SOURCE (unrecogn ized section and content) DATE CREATED AUTHOR AUTHOR'S ORGANIZ ATION 07/03/2021 [facility] DATE CREATED AUTHOR AUTHOR'S ORGANIZ ATION 03/06/2022 [facility] ([place]) DATE CREATED AUTHOR AUTHOR'S ORGANIZ ATION 08/26/2022 [facility] DATE CREATED AUTHOR AUTHOR'S ORGANIZ ATION 10/18/2023 [facility] FOR RECORDS PERTAINING TO PATIENTS WHO ARE OR HAVE BEEN ENROLLED IN A CHEMICAL DEPENDENCY/SUBSTANCEABUSE PROGRAM, SOME INFORMATION MAY BE OMITTED. This clinical summary was aggregated from multiple sources. Caution should be exercised in using it in the provision of clinical care. This summary normalizes information from multiple sources, and as a consequence, information in this document may materially change the coding, format and clinical context of patient data. In addition, data may be omitted in some cases. CLINICAL DECISIONS SHOULD BE BASED ON THE PRIMARY CLINICAL RECORDS. [facility]. provides no warranty or guarantee of the accuracy or completeness of information in this document.
== END | disposition home or self-care (01) ==
LOC: CVS 13:01
PROVIDERS: PCP Student in an Organized Health Care Education/Training Program; Referring Provider Podiatrist Foot & Ankle Surgery; Visit Provider Podiatrist Foot & Ankle Surgery
DX: M79.604 Pain in right leg (principal); I73.89 Other specified peripheral vascular diseases; M79.605 Pain in left leg
CPT/HCPCS: 93923; 93970

== ENCOUNTER → 2024-01-21 | Outpatient (CLI) | payer OTHER, SELFPAY ==
--- NOTE | 2024-01-21 18:51 | CT_ITS ---
STUDY: CT LEFT ANKLE / FOOT WITHOUT CONTRAST REASON FOR EXAM: Female, 63 years old. Left foot/ankle pain. RADIATION DOSAGE (If Supplied By Facility): CTDIvol = ( 15.35 ) mGy, DLP = ( 422.84 ) mGycm TECHNIQUE: Thin section transaxial imaging of the left ankle was obtained, with sagittal and coronal reconstructed images. Individualized dose optimization techniques were used for this CT. COMPARISON: None. FINDINGS: Normal visualized distal tibia and fibula. Normal tibiotalar articulation and talar dome. Intact talus, calcaneus, navicular and cuboid tarsal bones. There is a small plantar calcaneal spur. There is degenerative arthrosis of the talonavicular joint, intercuneiform joints, as well as second through fifth tarsometatarsal joints. Intact metatarsi. There is mild degenerative arthrosis at the first MTP joint. Intact tibial and fibular sesamoid bones. Normal interphalangeal joint of the great toe. Normal phalanges of the great toe. Normal second through fifth metatarsophalangeal joints. Normal interphalangeal joints and phalanges of the lesser toes. The soft tissue structures are unremarkable. There is no demonstrated fracture. CT/Extremity Lower without Contra IMPRESSION: Degenerative arthrosis of the talonavicular joint, intercuneiform joints, second through fifth tarsometatarsal joints, and first MTP joint. No demonstrated fracture. Small plantar calcaneal spur. Electronically Signed: Dell Angulo MD at 11:10 EST ,
== END | disposition home or self-care (01) ==
LOC: CT 18:46
PROVIDERS: PCP Student in an Organized Health Care Education/Training Program; Referring Provider Podiatrist Foot & Ankle Surgery; Visit Provider Podiatrist Foot & Ankle Surgery
DX: M19.072 Primary osteoarthritis, left ankle and foot (principal); M79.672 Pain in left foot
CPT/HCPCS: 73700

== ENCOUNTER 2024-02-15 08:04 | Day surgery (SDC) | payer OTHER, SELFPAY ==
--- NOTE | 2024-02-05 16:17 | EKG12_ITS ---
Test Reason : PREOP Blood Pressure : / mmHG Vent. Rate : 058 BPM Atrial Rate : 058 BPM P-R Int : 132 ms QRS Dur : 090 ms QT Int : 394 ms P-R-T Axes : 054 077 123 degrees QTc Int : 386 ms Sinus bradycardia Low voltage QRS Borderline ECG No previous ECGs available Confirmed by SAMINA ANDRADE, OLI ([id number]), food expeditor [employer] ([id number]) on 02/07/2024 8:59:22 AM Referred By: Ben Balbuena Confirmed By:OLI HAAS MD
[2024-02-06 17:31] LABS: Magnesium 2.1 mg/dL (1.6-2.6)
[2024-02-06 17:40] LABS: Hemoglobin A1c 5.6 % (3.8-5.6)
[2024-02-12 11:09] LABS: Cotinine Screen Blood <1.0 ng/mL (.); Nicotine Blood <1.0 ng/mL (.)
[2024-02-15] VITALS (10 sets, daily range): BP systolic 120–136; BP diastolic 67–100; PULSE 49–67; RESP 15–16; TEMP 35.8–36.3; O2SAT 92–100; BMI 40.4
--- NOTE | 2024-02-15 09:00 | RAD_ITS ---
HISTORY: TRIPLE ARTHRODESIS OF LEFT FOOT W/ENDOSCOPIC GASTRIC RECESSION, HARVEST BONE BUCHANAN. TECHNIQUE: 7 spot images. COMPARISON: None. FINDINGS: OSSEOUS STRUCTURES: Overlying surgical instrument. Hardware placed of the subtalar joint and midfoot. Hardware also noted at the first metatarsophalangeal joint. Overlying skin mitch. FLUOROSCOPY TIME: 242 seconds. RADIATION DOSE: 7.51 mGy. RAD/Foot 2 Views IMPRESSION: Image guidance for left foot arthrodesis. Electronically Signed: Eufemia Gonzáles MD at 15:25 EDT ,
[2024-02-15] MEDS: Acetaminophen 500 MG Tablet 1000 MG PO (09:03)
[2024-02-15] MEDS: Magnesium 1 GM over 15 mins IV (09:03)
[2024-02-15] MEDS: Gabapentin 600 MG Tablet PO (09:03)
[2024-02-15] MEDS: Lactated Ringers 1,000 ML 15 ML IV (09:03)
[2024-02-15 10:19] LABS: Bedside Glucose 81 mg/dL (74-106)
--- NOTE | 2024-02-15 10:31 | OP.PCM_ITS ---
Problems Associated Problem List Diagnoses (1) Primary osteoarthritis, left ankle and foot: (2) Hallux valgus (acquired), left foot: (3) Short Achilles tendon (acquired), left ankle: (4) Posterior tibial tendinitis, left leg: (5) Flat foot [pes planus] (acquired), left foot: Report of Operation Date of Procedure: 02/15/24 Pre-Operative Diagnosis: 1. Primary osteoarthritis, left lower extremity 2. Hallux valgus, left foot 3. Short Achilles tendon, left lower extremity 4. Posterior tibial tendinitis, left lower extremity 5. Pes planus, left foot Post-Operative Diagnosis: 1. Primary osteoarthritis, left lower extremity 2. Hallux valgus, left foot 3. Short Achilles tendon, left lower extremity 4. Posterior tibial tendinitis, left lower extremity 5. Pes planus, left foot Surgery/Procedure Performed:: 1. Triple arthrodesis, left lower extremity 2. Endoscopic gastroc recession, left lower extremity 3. [place] of bone marrow aspirate concentrate, left lower extremity 4. [place] of calcaneal bone graft, left foot 5. Posterior tibial tendon debridement and repair, left lower extremity Description of Surgical Findings:: 1. Evidence of midfoot osteoarthritis. 2. Evidence of accessory ossicle appreciated to the navicular. 3. Successful triple arthrodesis to the left lower extremity. 4. Successful first metatarsophalangeal joint arthrodesis, left lower extremity Surgeon: Ben Balbuena pathology transcriptionist: Fabio Durán Type of Anesthesia: Block,Regional and General Anesthesiologist: Ron Mcleod Special Medications: Per anesthesia Specimen's removed: None Drains: None Estimated Blood Loss (mL): 150 mL Fluids Replaced: Per anesthesia Description of Procedure: Indications For Operation: Ms. Dorado is a 61-year-old female who was admitted to [facility] for elective left lower extremity surgery. Patient was seen in private office where she had thorough physical exam and surgical workup with CT and arterial studies which show evidence of moderate osteoarthritis to the level of the right foot with pes planus deformity. Patient's arterial studies are within normal limits. The patient is fully aware of all risk and benefits of the surgery during her surgical consultation in private office with Dr. Balbuena which she is well-known to that office. Patient does have a history of deep vein thromboses and pulmonary emboli and will be placed on postoperative Lovenox 40 mg daily for 30 days with 1 refill. It was discussed with the patient great detail that if she has any pain to the left or right calf as well as shortness of breath she is to report to the emergency room which she is understanding of. Due to the nature of the patient's deformity it has been deemed necessary at this time to take the patient to the operating room to perform the above procedures to help reconstruct her foot and decrease her constant pain. The nature of the problem, anticipated procedures, postop recovery/convalences and risk/complications include but not limited to infection, wound healing complications, digital amputation, hypertrophic scarring, numbness, tingling, chronic pain, CRPS, over and under correction, recurrence of deformity, DVT and or PE and the need for further surgery have been discussed in great detail with the patient. All questions have been answered to the patient's satisfaction. There are no guarantees given as to the outcome of the procedure. Description of Procedure: Under mild sedation, the patient was brought into the operating room and placed on the operating table in supine position. Once the patient was under general anesthesia with laryngeal mask airway, the left lower extremity was blocked using approximately 10 cc 0.5% Marcaine plain to the saphenous nerve, the patient will be getting a popliteal block per anesthesia please see anesthesia note for further detail. Next, a well-padded thigh tourniquet was applied to the left lower extremity. Next, the left lower extremity was prepped and draped in normal aseptic manner. Next, a timeout was then undertaken verifying the correct patient, extremity, visibility of preoperative markings, availability of the equipment. Procedure #1, [place] of bone marrow aspirate concentrate, left lower extremity Next, attention was directed to the left lower extremity calcaneal bone. Using a #15 blade, a 0.5 cm incision was made to the lateral aspect of the left calcaneal bone. Insertion of a Jamshidi needle was done by hand with promotions assistant sales marketing of nish beck. Next, using to 30 mL syringes, a total of 60 mL of bone marrow aspirate concentrate was removed from left calcaneus passed back table to be spent down for PPP and bone marrow aspirate concentrate. The incision was flushed with copious normal saline. The skin was reapproximated and closed with 3-0 nylon and horizontal mattress suture technique. Procedure #2, endoscopic gastroc recession, left lower extremity Next, attention was directed to the left lower extremity. Using a 6 Esmarch, left lower extremity was exsanguinated and elevated to 60 degrees for 1 minute the tourniquet was inflated to 300 mmHg. Next, attention was directed to the left lower extermity. A silfverskiold test was performed on the operating table. There was evidence of a positive Silfverskiold test for gastrocnemius equinus. Next, attention was directed to the aponeurosis of the gastrocnemius muscle. A small stab incision was placed approximately 2 to 3 cm from the gastroc insertion. Using the John assistant press operator offset the aponeurosis was bow strong and then advanced to the lateral aspect of the left lower extremity. Once tenting of the skin was identified a small stab incision was made with a 15 blade laterally. Using the John obturator and cannula, it was advanced through both incisions. Using the John 3 degree 4.0 mm scope there showed evidence of the aponeurosis of the gastrocnemius muscle. Using the rasp the muscle fibers/Sub Q were removed from the aponeurosis tissue. Using the Euclid 30 degree 4.0 mm scope and combination of hook and triangle blade, careful incision across the aponeurosis was made half laterally then half medially until released. After release of the aponeurosis the ankle was put through range of motion with the knee extended as well as flexed and showed to be increased past 90 in both positions. Both incisions were flushed with copious ad of warm saline. Procedure #3, triple arthrodesis, left lower extremity Next, attention was directed to the level of the hindfoot at the level of the talonavicular joint. Using a sterile skin marker incision was placed at the level of the distal medial malleolus to the level of the navicular tuberosity. Next, using a #15 blade a partial-thickness incision was made down to subcutaneous tissue with all venous structures cauterized as necessary. Continued blunt dissection was carried down to level of the subcutaneous tissue using Metzenbaum scissors. Once to the level of the posterior tibial tendon sheath the sheath was delicately incised to expose the posterior tibial tendon which showed evidence of some degeneration. The posterior tibial tendon was reflected off the insertion of the navicular which showed evidence of a secondary ossicle. The repair and reinsertion of the posterior tibial tendon will be done at a later time in the case. Once the talonavicular joint was identified the joint capsule and surrounding ligaments removed for allowing exposure to the TN joint. At this time there showed evidence of moderate osteoarthritis appreciated to the medial aspect of the talar head and navicular body. Using a Hohmann retractor 2 Steinmann pins were placed in the body of the navicular and the neck of the talus. The joint was distracted and a combination of osteotomes and curettes were used to prepare the joint by taking all articular cartilage off the head and body of the navicular. The joint was flushed with copious also normal saline. Next, using a 4-0 millimeter egg bur the joint was continuously prepped throughout to ensure that the joint was prepped on the lateral inferior aspect of the navicular and talus. Next, attention was directed to the lateral aspect of the rear foot. The lateral incision was prepared with a starting point at the inferior aspect of the fibula and to the base of the fourth metatarsal. A modified all years incision was carried out using a #15 blade. Care was to avoid the intermediate cutaneous nerve as well as peroneal tendons through the incision. Continued blunt dissection was carried down to the level of the peroneal tendons as well as to the level of the calcaneocuboid joint and subtalar joint. The calcaneocuboid joint was identified and incised using a #15 blade without incident. The joint was distracted and opened using a osteotome. The calcaneal fibular ligament was also identified with care to retract the peroneal tendons, and the calcaneofibular ligament was incised using a #15 blade. Angela's tonsil was identified as well as the interosseous ligament which were removed via rongeur and sharp dissection. Joint was further opened up using a McGlamry elevator. Using a lamina silk spreader, the lamina silk spreader was inserted into hoax tonsils to allow for continued exposure of the subtalar joint. Using a combination of osteotomes curettes and 4.0 mm egg bur the subtalar joint was prepped along the inferior and superior aspects of the floor of the calcaneus and inferior aspect of the talus at the anterior medial and posterior facets. Next, attention was directed to the calcaneocuboid joint, using a combination of osteotomes, curettes and 4.0 mm egg bur the calcaneocuboid joint was prepped. Next, using a 2.0 mm drill, aggressive fenestration was carried across the subtalar joint, calcaneocuboid joint and talonavicular joint. Next, 10 cc of vitoss bone graft 2.5 cc of Sa[employer] medical augment and bone marrow aspirate concentrate or mixed together on the back table. The [employer] and bone marrow aspirate contrite were divided up and administered to the talonavicular joint, calcaneocuboid joint and the subtalar joint. Next, using a 2 oh Steinmann pin the talonavicular joint was placed in anatomical position with the anterior tibial crest in line with the second ray. Next, using a Steinmann pin, the pin was thrown through the calcaneus into the subtalar joint encompassing the posterior facet. The position of the Steinmann pin was confirmed with large C-arm fluoroscopy and lateral, AP and calcaneal axial views. Using the manufactures recommendation and the rep in the room a 7.0 mm headless screw was placed across the subtalar joint which showed excellent compression clinically as well as on large C-arm fluoroscopy. Next, a second 7.0 mm headless screw was placed from superior to inferior across the talar neck into the body of the calcaneus. Both screws were checked clinically as well as on large C-arm fluoroscopy and showed great compression and position. Next, attention was directed back to the talonavicular joint, with the pin in place a 5.0 mm headless screw was inserted across the joint and its position confirmed clinically as well as with large C-arm fluoroscopy. Excellent compression was noted across the TN joint and there was no need for an additional screw or staple at this time. Next, attention was directed to the calcaneocuboid joint and placement of a 0 mm plate with a combination of 4 locking screws were placed per the manager diesel's recommendation with the rep in the room. Procedure #4, posterior tibial tendon debridement and repair, left lower extremity Next, and was directed to the level of the secondary ossicle of the navicular. Using a large osteotome and mallet, the accessory ossicle on the navicular was removed once the posterior tibial tendon was lifted off its insertion. The removal of the ossicle was confirmed with large C-arm fluoroscopy. Next, attention was directed to the posterior tibial tendon which was debrided of our scar tissue and repaired with FiberWire whipstitch. Next, the posterior tibial tendon was inserted back into the navicular using a 2.9 mm anchor provided by John with a wrap in the room per the manager diesel's recommendation. Once the anchor was seated there showed good integrity to the posterior tibial tendon and its new position. Procedure #5, first metatarsophalangeal joint arthrodesis, left lower extremity Next, using a #15 blade, a full-thickness incision down to bone was made medial to the extensor hallucis longus tendon, left foot. The extensor hallucis longus tendon was protected and continued dissection was carried down and around the first metatarsal phalangeal joint. Care was taken to remove the periosteum at the level of the surgical neck of the first metatarsal and head as well as the base of the proximal phalanx. The joint was inspected and showed evidence of moderate osteoarthritis as well as 50% loss of the articular surface of the first metatarsal head and base of the proximal phalanx. Using 20 mm cup and cone reamers the head of the first metatarsal and base of the proximal phalanx were prepped. The additional overgrowth of bone was removed with rongeur and 4.0 mm egg bur and discarded. The incision area was flushed with copious also normal saline. A 2-0 mm drill was used to fenestrate the head of the first metatarsal and base of the proximal phalanx. After fenestration was complete, Saunders medical augment was placed in the first metatarsal phalangeal joint and t he first metatarsal phalangeal joint was placed in a anatomical position with the hallux parallel to the second digit with the toenail facing up, with 10 degrees of dorsiflexion with 10 degrees of valgus rotation, and fixated in this position with a 1.4 mm fixation pin. Using the manager diesel's guidewire and recommendations, a 3.0 mm headless cannulated interfrag screw was placed across the first metatarsal phalangeal joint. Next, the [employer] Medical Ortholoc plate was placed per the manager diesel's recommendation with the rep in the room. 3 distal 2.7 millimeter locking screws were placed. Next, 2 additional 3.5 mm locking screws were placed in the proximal plate. All screw lengths were checked clinically as well as with large C-arm fluoroscopy. Attempt was made to put the first metatarsophalangeal joint through range of motion which was unsuccessful due to excellent apposition of the joint during surgery. All incisions proximal and distal were flushed with copious normal saline. At this time the left thigh tourniquet was deflated and reperfusion was noted instantly to the left lower extremity. All bleeders were ligated and cauterized as necessary. Next, the deep layer of the first metatarsal phalangeal joint incision was closed with 3-0 Monocryl and running locking suture technique. The subcutaneous layer and the fascia was reapproximated and closed with 3-0 Monocryl and running suture technique and care was made to allow the saphenous nerve to sit free in the soft tissue. The skin was reapproximated and closed with mitch. Next, the medial lateral triple arthrodesis incisions were again flushed with copious normal saline. The deep layer was reapproximated and closed with 3-0 Monocryl and running locking suture technique. The skin cutaneous layer was r eapproximated and closed with 3-0 Monocryl and running nonlocking suture technique. The skin was reapproximated and closed with mitch. Next, the proximal incision at the level of the endoscopic gastroc recession was again flushed with copious normal saline. The skin was reapproximated and closed with 3-0 nylon in simple interrupted suture technique. Next, using 2 cc of via flow, all via flow was injected in small aliquots across all incisions to aid in healing and to decrease inflammation. The left lower extremity was then cleaned and patted dry. All incisions were dressed with Betadine soaked Adaptic, 4 x 4's, dry sterile dressing, and a 2 layer Cooley AO splint was applied to the left lower extremity. The patient tolerated the procedure and anesthesia well and apparent satisfacto ry condition and was transported to the PACU for further monitoring prior to discharge home. Vital signs stable and vascular status intact to all digits bilateral. Need for skilled promotions assistant sales marketing: Fabio Durán DPM was critical to the outcome of the case. During the course of the procedure the promotions assistant sales marketing physician played a vital role. His intimate knowledge of my steps in the procedure aided in safe and expedient completion of the procedure. The promotions assistant sales marketing surgeon played a vital role in positioning particularly in obtaining the appropriate positioning. The promotions assistant sales marketing surgeon was also vital in the retraction of soft tissues during the exposure and protecting vital structures when needed. The surgeon was also vital and obtaining reduction and assisting with hardware placement throughout the case. Post Operative Plan: Weightbearing: Nonweightbearing to left lower extremity with crutches and/or knee scooter. Full weightbearing right lower extremity. Antibiotics: DVT Prophylaxis: Lovenox 40 mg daily for 30 days with 1 refill Luz: None Dressing: Betadine soaked Adaptic, dry sterile dressing and a lumbar layer Cooley AO splint at 90 degrees down to left lower extremity. X-Rays: Post-operative films taken on the operating room. Pain Medication: Oxycodone 5 mg every 4 hours, Flexeril 10 mg 3 times daily, Tylenol 1000 mg every 6 hours Follow-up: Patient will follow-up with Dr. Balbuena in 2 weeks in private office. If she has any questions or concerns she can follow-up with Dr. Durán in private office in 1 week. Grafts/Implants Used: Vitoss, Augment, Via flow 2 cc, Saunders medical and John hardware Complications None Admit VTE Documentation VTE Present on Admission: No VTE Mechan Device Prophylaxis: SCD's VTE Pharm Prophylaxis ordered?: Yes
[2024-02-15] MEDS: Cefazolin 2 GM in 0.9% Normal Saline (100mL Bag) 100 ML IV (11:20)
[2024-02-15] MEDS: Thrombin 5,000 IU Kit (PSA) 5,000 IU Vial 5000 IU TOPICAL (13:00)
[2024-02-15] MEDS: Calcium Chloride 1 GM/10 ML Syringe (13:00)
[2024-02-15] MEDS: Heparin 10,000 UNITS/10 ML Vial 10000 UNITS (13:00)
[2024-02-15] MEDS: Bupivacaine Mpf 0.5% 30 ML VIAL (15:41)
== END 2024-02-15 18:02 | disposition home or self-care (01) ==
LOC: SDC 08:06 → AC 08:37
PROVIDERS: Anesthesiology; PCP Student in an Organized Health Care Education/Training Program; Referring Provider Podiatrist Foot & Ankle Surgery; Visit Provider Podiatrist Foot & Ankle Surgery
PROC: (CPT 28715; principal; 2024-02-15 09:45)
DX: M19.072 Primary osteoarthritis, left ankle and foot (principal); E66.01 Morbid (severe) obesity due to excess calories; Z68.41 Body mass index [BMI] 40.0-44.9, adult; M20.12 Hallux valgus (acquired), left foot; M76.822 Posterior tibial tendinitis, left leg; M21.42 Flat foot [pes planus] (acquired), left foot; M67.02 Short Achilles tendon (acquired), left ankle; I10 Essential (primary) hypertension; E78.5 Hyperlipidemia, unspecified; Z79.01 Long term (current) use of anticoagulants; Z79.899 Other long term (current) drug therapy; Z86.718 Personal history of other venous thrombosis and embolism; Z86.711 Personal history of pulmonary embolism; Z87.891 Personal history of nicotine dependence
CPT/HCPCS: 28715; 28750; 27658; 29999; 20999; 64447; 01480; 36415; 73620; 76000; 80323; 82962; 83036; 83735; 87081; 93005; C1713; J7120; G0480; J2405; J3475

== ENCOUNTER → 2024-09-22 | Outpatient (CLI) | payer OTHER, SELFPAY ==
[2024-09-22 12:40] LABS: Absolute Lymphocyte Count 2.11 X10^3/uL (0.83-4.51); Basophil# 0.06 X10^3/uL; Basophil% 0.9 % (0-1); Eosinophil# 0.09 X10^3/uL; Eosinophils% 1.3 % (0-5); Hematocrit 45.2 % (37-47); Hemoglobin 14.2 g/dL (12.0-15.0); Lymphocyte # 2.11 X10^3/ul (0.83-4.51); Lymphocyte % 30.8 % (19-41); Mean Corp Hgb Conc 31.4 g/dL (32-36); Mean Corpuscular Hgb 28.3 pg (27.0-32.0); Mean Platelet Vol. 12.8 fl (6.2-12.0); Monocyte# 0.58 X10^3/uL; Monocyte% 8.5 % (0-10); NRBC Flagged by Analyzer 0 % (0-5); Neutrophil # 3.97 X10^3/uL (2.7-7.7); Neutrophil % 58.1 % (47-70); Platelet Count 250 K/mm3 (150-450); RBC Distribution Width CV 13.8 % (11.6-14.6); RBC Distribution Width SD 45.7 fl (35.1-43.9); Red Blood Count 5.02 M/mm3 (4.2-5.4); White Blood Count 6.8 K/mm3 (4.4-11.0)
[2024-09-22 12:48] LABS: Erythrocyte Sedimentation Rate 8 mm/hr (0-30)
[2024-09-22 13:16] LABS: ALB/GLOB Ratio 0.9 RATIO (0.9-2.4); AST(SGOT) 14 U/L (15-37); Alanine Aminotransfer ALT/SGPT 18 U/L (13-56); Albumin, Serum 3.7 g/dL (3.2-5.0); Alkaline Phosphatase 98 U/L (45-117); Anion Gap 6 (5-15); BUN 18 mg/dL (7-18); BUN/Creat Ratio 21.4 RATIO (10-20); CRP 5.03 mg/L (0.0-3.0); Calcium,Total 9.4 mg/dL (8.5-10.1); Chloride 106 mmol/L (98-107); Creatinine, Serum 0.84 mg/dL (0.55-1.02); EST Glomerular Filtration Rate 73 mL/min (>60); Est Glom Filt Rate - Afr Amer 88 mL/min (>60); Globulin 4.1 g/dL (2.2-4.2); Glucose 96 mg/dL (74-106); Potassium 3.8 mmol/L (3.5-5.1); Protein, Total 7.8 g/dL (6.4-8.2); Sodium Level 136 mmol/L (136-145)
== END | disposition home or self-care (01) ==
LOC: LAB 11:40
PROVIDERS: PCP Student in an Organized Health Care Education/Training Program
DX: R53.83 Other fatigue (principal); R19.7 Diarrhea, unspecified; K21.9 Gastro-esophageal reflux disease without esophagitis; K22.70 Barrett's esophagus without dysplasia
CPT/HCPCS: 36415; 80053; 84443; 85025; 85652; 86140

== ENCOUNTER → 2024-09-30 | Outpatient (CLI) | payer OTHER, SELFPAY ==
[2024-10-04 00:07] LABS: Giardia Lamblia, Stool EIA Negative (Negative); Pancreatic Elastase, Fecal > 800 (>200)
[2024-10-05 01:06] LABS: Calprotectin, Stool 23 ug/g (0-120)
== END | disposition home or self-care (01) ==
LOC: LABSPEC 15:36
PROVIDERS: PCP Student in an Organized Health Care Education/Training Program
DX: R53.83 Other fatigue (principal); K22.70 Barrett's esophagus without dysplasia; K21.9 Gastro-esophageal reflux disease without esophagitis; K58.9 Irritable bowel syndrome, unspecified; R19.7 Diarrhea, unspecified
CPT/HCPCS: 82653; 83630; 83993; 87329; 87493; 87506

== ENCOUNTER 2024-10-28 13:14 | Day surgery (SDC) | payer OTHER, SELFPAY ==
[2024-10-28] VITALS (7 sets, daily range): BP systolic 103–133; BP diastolic 59–76; PULSE 61–73; RESP 16–18; TEMP 36.2–36.5; O2SAT 94–98; BMI 43.1
--- NOTE | 2024-10-28 14:10 | HP.PCM_ITS ---
History and Physical Date of Admission: 10/28/24 Chief Complaint: f/u Details: SALVADOR OLIVAS, is a 63 F who presents to the office today for FU with complaints of increasing GERD symptoms. States that she has seen a beauty operator apprentice and ruled out cardiac involvement, as she has complaints of daily lower sternal chest pain and LUQ abdominal pain with bloating and nausea. She reports eating only 1 meal a day as she does not have an appetite, or feel like there would be any room, for food more than once a day. She states loose watery stools up to 4 times daily is new, denies that diarrhea wakes her from sleep. She denies fever, chills, difficulty chewing and swallowing, vomiting, hematochezia and melena. She reports lack of energy, early fatigue, and weight gain since foot surgery in January. She has been hospitalized for bacterial pneumonia in May and dealt with viral pneumonia six weeks later. She reports being newly diagnosed with asthma. She also expresses concern over her weight gain. ROS Const Constitutional: Positive for fatigue, weakness and weight change; No chills or fever(s) Eyes Eyes: No change in vision ENT ENT: No abnormal hearing or difficulty swallowing Resp Respiratory: Positive for cough Cardio Cardiology: Positive for chest pain at rest and leg pain with exertion Gastro GI: Positive for bloating, change in bowel habits, diarrhea, heartburn, excessive flatus and nausea/dyspepsia; No abdominal pain, belching, change in stool character, coffee ground emesis, constipation, cramping, difficulty swallowing, feeling full early, incontinent of stools, Vomiting blood/hematemesis, Blood in stool, loose stools, Black,tarry stools, pain with swallowing, vomiting or other Genitourinary-Female: No difficulty urinating Musc Musculoskeletal: Positive for abnormal gait, joint pain, back pain, joint swelling, muscle cramps, muscle weakness, numbness, stiffness, tingling, Arthritis, sciatica, restless legs, leg pain at night and leg pain with exertion Skin Skin: No yellowing of the eye or itchy eyes Neuro Neurology: Positive for abnormal gait, weakness, numbness, tingling and restless legs; No abnormal hearing Psych Psychiatric: Positive for lack of enjoyment, No anxiety and No depression Endo Endocrine: Positive for change in body appearance, fatigue and weight change; No cold intolerance or heat intolerance Aller/Imm Allergy/Immunologic: No food intolerance or itchy eyes Ulysses/Lymp Hematologic/Lymphatic: No easy bleeding or easy bruising Exam Const General: cooperative, healthy appearing, comfortable and no acute distress Nutritional Appearance: obese Orientation: alert HENMI Head: normal to inspection Ears: hearing grossly normal bilaterally Nose: external nose normal Face and sinus: normal facial exam and face symmetric Eyes General: appearance normal, both eyes and all related structures Sclera: sclerae normal Neck Neck: full ROM Neck mass: No Chest Chest palpation & inspection: normal inspection of the chest Resp Effort & Inspection: normal respiratory effort, able to speak in complete sentences and symmetric chest movement GI Inspection: normal to inspection and obesity Auscultation: normal bowel sounds Palpation: soft and no hepatosplenomegaly Skin General: no rashes or lesions noted Neuro General: patient alert, patient awake, patient oriented x3 and moves all extr emities Cognition: normal cognition Speech: speech normal Gait: normal gait Extrem General: full ROM Psych Appearance: well kempt Mental Status: mental status grossly normal Mood: congruent mood Affect: normal affect Speech and Movement: speech and movement normal Attitude: cooperative Thought Process: normal Assessment and Plan Assessment and Plan (1) GERD (gastroesophageal reflux disease): Status: Chronic Qualifiers: Esophagitis presence: with esophagitis Esophagitis bleeding: without hemorrhage Qualified Code(s): K21.00 - Gastro-esophageal reflux disease with esophagitis, without bleeding Plan: SALVADOR OLIVAS, is a 63 F who presents to the office today for FU with complaints of increasing GERD symptoms, weight gain, bloating. Differential diagnoses include: delayed gastric emptying, gastric outlet obstruction, PUD, GERD. Discussed plans with her. Address chest pain, early satiety, fatigue first. Discuss returning to phentermine at follow-up. * blood for thyroid, CBC,CMP, inflammatory markers * stool for enteric, inflammatory, enzyme markers * GET for early satiety * EGD to investigate GERD/Ramesh's advancement * continue omeprazole 40mg PO BID * continue famotidine PO QHS and PRN x1 through day * sucralfate 1gm PO QAC * office follow-up 1 month(2) Fatigue: Status: Acute Qualifiers: Fatigue type: unspecified Qualified Code(s): R53.83 - Other fatigue (3) Diarrhea: Status: Acute Qualifiers: Diarrhea type: unspecified type Qualified Code(s): R19.7 - Diarrhea, unspecified (4) Ramesh's esophagus: Status: Chronic Qualifiers: Ramesh's esophagus type: without dysplasia Qualified Code(s): K22.70 - Ramesh's esophagus without dysplasia Orders: Orders Thyroid Stim Hormone (TSH) Today K21.9 - Gastro-esophageal reflux disease without esophagitis, K22.70 - Ramesh's esophagus without dysplasia, R19.7 - Diarrhea, unspecified, R53.83 - Other fatigue Pancreatic Elastase, Fecal Today K21.9 - Gastro-esophageal reflux disease without esophagitis, K22.70 - Ramesh's esophagus without dysplasia, R19.7 - Diarrhea, unspecified, R53.83 - Other fatigue Stool Lactoferrin/WBC Today K21.9 - Gastro-esophageal reflux disease without esophagitis, K22.70 - Ramesh's esophagus without dysplasia, K58.9 - Irritable bowel syndrome, unspecified, R19.7 - Diarrhea, unspecified, R53.83 - Other fatigue Giardia Lamblia, Stool EIA Today K21.9 - Gastro-esophageal reflux disease without esophagitis, K22.70 - Ramesh's esophagus without dysplasia, R19.7 - Diarrhea, unspecified, R53.83 - Other fatigue CDIFF (PCR) Today K21.9 - Gastro-esophageal reflux disease without esophagitis, K22.70 - Ramesh's esophagus without dysplasia, R19.7 - Diarrhea, unspecified, R53.83 - Other fatigue ENTERIC PATHOGEN PANEL STOOL Today K21.9 - Gastro-esophageal reflux disease without esophagitis, K22.70 - Ramesh's esophagus without dysplasia, K58.9 - Irritable bowel syndrome, unspecified, R19.7 - Diarrhea, unspecified, R53.83 - Other fatigue Erythrocyte Sed Rate Today K21.9 - Gastro-esophageal reflux disease without esophagitis, K22.70 - Ramesh's esophagus without dysplasia, R19.7 - Diarrhea, unspecified, R53.83 - Other fatigue CRP Today K21.9 - Gastro-esophageal reflux disease without esophagitis, K22.70 - Ramesh's esophagus without dysplasia, R19.7 - Diarrhea, unspecified, R53.83 - Other fatigue Calprotectin, Stool Today K21.9 - Gastro-esophageal reflux disease without esophagitis, K22.70 - Ramesh's esophagus without dysplasia, R19.7 - Diarrhea, unspecified, R53.83 - Other fatigue CBC W/Diff, Automated Today K21.9 - Gastro-esophageal reflux disease without esophagitis, K22.70 - Ramesh's esophagus without dysplasia, R53.83 - Other fatigue Comprehensive Metabolic Profil Today K21.9 - Gastro-esophageal reflux disease without esophagitis, K22.70 - Ramesh's esophagus without dysplasia, R53.83 - Other fatigue Gastric Emptying Study Today K21.9 - Gastro-esophageal reflux disease without esophagitis Medications: New sucralfate 1 g PO QAC 90 tabs 0RF furosemide 40 mg PO QAM Discontinued turmeric root extract Discontinued Reason: Pt no longer taking 1,076 mg PO DAILY pyridoxine (vitamin B6) Discontinued Reason: Pt no longer taking 100 mg PO DAILY magnesium oxide Discontinued Reason: Pt no longer taking 400 mg PO DAILY hydrochlorothiazide Discontinued Reason: Pt no longer taking 25 mg PO DAILY DIURECTIC ascorbic acid (vitamin C) (Vitamin C) Discontinued Reason: Pt no longer taking 1 g PO DAILY 90 days 90 tabs 0RF enoxaparin (Lovenox) Discontinued Reason: Pt no longer taking 40 mg (0.4 mL) subcut DAILY 30 days 12 mL 1RF oxycodone Discontinued Reason: Pt no longer taking 5 mg PO Q4H 7 days 42 tabs 0RF pain G89.18 - Other acute postprocedural pain cyclobenzaprine Discontinued Reason: Pt no longer taking 10 mg PO TID 7 days 21 tabs 0RF muscle spasm cyclobenzaprine Discontinued Reason: Pt no longer taking 10 mg PO TID 7 days 21 tabs 0RF muscle spasm vit A-vit T-bktqzq-qlga-copper 2,500 unit-100 mg-2,500 mcg (Igwx-Anuf-Ielb (vit A,X-cuwgsz-Ug-Cu)) Discontinued Reason: Pt no longer taking 1 cap PO DAILY glucosamine-chondroitin 250-200 mg (Osteo Bi-Flex) give after food/meal Discontinued Reason: Pt no longer taking 2 tabs PO DAILY calcium carbonate-vitamin D3 500 mg-15 mcg (600 unit) (Os-Crow 500 + D3) Discontinued Reason: Pt no longer taking 1 TAB PO DAILY 90 days 90 tabs 0RF cyclobenzaprine Discontinued Reason: Pt no longer taking 10 mg PO TID 7 days 21 tabs 0RF muscle spasm cyclobenzaprine Discontinued Reason: Pt no longer taking 10 mg PO TID 7 days 21 tabs 0RF muscle spasm oxycodone Discontinued Reason: Pt no longer taking 5 mg PO Q4H 7 days 42 tabs 0RF G89.18 - Other acute postprocedural pain cyclobenzaprine Discontinued Reason: Pt no longer taking 10 mg PO TID 7 days 21 tabs 0RF muscle spasm I have examined the patient and the H&P has been reviewed. There are no clinical changes since date of exam.
--- NOTE | 2024-10-28 14:44 | PRE.ANES_ITS ---
ASA Classification* ASA Classification ASA Classification: 3 Assessment & Plan Anesthesia* Anesthesia Assessment Anesthesia Assessment: Discussed sedation and/or anesthesia options, risks, benefits, and alternatives with patient/parents/legal guardian/POA. Questions invited. The patient/parents/legal guardian/POA seems to understand and agrees to proceed with anesthesia plan. Reviewed the physical assessment, medical history, allergy history and patient home medications list prior to surgery/procedure/anesthetic and documented any changes. Performed airway and anesthesia risk assessments. Anesthesia Type Anesthesia Type: MAC History Source History Obtained from:: Patient and Chart Anesthesia Focused Assessment* Temperature: 97.7 F Pulse Rate: 71 Blood Pressure: 133/76 Respiratory Rate: 18 Pulse Ox: 98 Oxygen Delivery Method: Room Air Airway Assessment Mouth opens: >3 cm Mallampati Score: III Teeth Condition: Caps/Crowns (Patient has several crowns on her molars. They are all tight.) Neck Range of motion (ROM): Full ROM Focused Labs Anesthesia Preop lab: CBC WBC 6.8 K/mm3 (4.4-11.0) 09/22/24 11:43 RBC 5.02 M/mm3 (4.2-5.4) 09/22/24 11:43 Hgb 14.2 g/dL (12.0-15.0) 09/22/24 11:43 Hct 45.2 % (37-47) 09/22/24 11:43 Plt Count 250 K/mm3 (150-450) 09/22/24 11:43 CHEMISTRY Potassium 3.8 mmol/L (3.5-5.1) 09/22/24 11:43 Sodium 136 mmol/L (136-145) 09/22/24 11:43 Magnesium 2.1 mg/dL (1.6-2.6) 02/06/24 16:24 BUN 18 mg/dL (7-18) 09/22/24 11:43 Creatinine 0.84 mg/dL (0.55-1.02) 09/22/24 11:43 Glucose 96 mg/dL (74-106) 09/22/24 11:43 POC Glucose 81 mg/dL (74-106) 02/15/24 08:42 TSH 1.440 uIU/mL (0.358-3.740) 09/22/24 11:43 COAG Pre-Assessment Diagnosis/Proposed Procedure Planned Operative Procedure(s): EGD Anesthesia History Anesthesia History - ruling machine set up operator: Anesthesia History - ruling machine set up operator Hx Hospitalization No 10/22/24 09:27 Any Problems With Anesthesia No 10/22/24 09:27 Cholinesterase deficiency No 10/22/24 09:27 You/Your Family Experience No 10/22/24 09:27 fever (hyperthermia) with Relationship Recent Exposure to Contagious No 10/28/24 13:48 Disease Does patient have nerve No 10/22/24 09:27 stimulator Patient instructed to have device shut off --Does patient have Pacemaker No 10/28/24 13:48 or ICD? When Was Last Pacemaker Check QUESTION #4 FULL TEXT: You/Your Family Experience fever (hyperthermia) with Anesthesia Last Oral Intake Last Oral intake: Last Oral Intake NPO since 219910/28/24 13:48 Meds taken in AM with sips of No 10/28/24 13:48 water? Meds patient instructed to take am of surgery Any additional information?: Yes NPO since: 22:00 (Patient has not had nothing since generator at 10 PM last night.) PONV PONV - ruling machine set up operator: PONV - ruling machine set up operator Female Yes 10/22/24 09:27 HX of Motion Sickness No 10/22/24 09:27 HX of N/V After Surgery No 10/22/24 09:27 Non-Smoker Yes 10/22/24 09:27 Duration of Surgery greater No 10/22/24 09:27 than 60 minutes Number of Risk Factors 2 10/22/24 09:27 PONV Score Moderate Risk 10/22/24 09:27 Height & Weight Height & Weight: Anesthesia: Height & Weight Height 5 ft 7 in 10/28/24 13:48 Weight: 125 kg 10/28/24 13:48 Body Mass Index (BMI) 43.1 10/28/24 13:48 Respiratory Assessment Respiratory Assessment - ruling machine set up operator: Respiratory Tract Infection Hx - ruling machine set up operator Hx Respiratory Tract Infection No 10/22/24 09:27 STOP Sleep Apnea STOP Sleep Apnea - ruling machine set up operator: STOP Sleep Apnea - ruling machine set up operator Hx Hypertension Yes: CONTROLLED WITH MED 10/22/24 09:27 Hx Sleep Apnea Yes 10/22/24 09:27 CPAP Yes: NON COMPLIANT 10/22/24 09:27 BIPAP No 10/22/24 09:27 Do you snore loudly (louder than talking or can be heard Do you often feel tired/ fatigued/ sleepy during daytime? Has anyone observed you stop breathing during sleep? STOP Results Positive 10/22/24 09:27 QUESTION #5 FULL TEXT : Do you snore loudly (louder than talking or can be heard through closed doors)? Tobacco Use History Tobacco Use History - ruling machine set up operator: Tobacco Use History - ruling machine set up operator Tobacco Use Smoking Status Never smoker 10/22/24 09:27 Hx Tobacco Use No 10/22/24 09:27 Years Smoking Packs Smoked per Day Smoking Cessation Date was within the last 15 years Hx Smoking Cessation Date Hx Smoking Cessation Counseling Hematologic Medial History Hematologic Hx - ruling machine set up operator: Hematologic Medical Hx - director digital strategy Hx of Blood Transfusion No 10/22/24 09:27 Hx of Transfusion in last 3 No 10/22/24 09:27 Months Date of Last Transfusion (if within last 3 months) Ever experience any problems No 10/22/24 09:27 with transfusion(s)? Specify any problems Hx of Preganancy in last 3 No 10/22/24 09:27 Months Nurse Filling Out Transfusion DSCHRIBER 10/22/24 09:27 & Questions: Date: 10/22/24 10/22/24 09:27 Time: :28 10/22/24 09:27 Patient unable to answer at this time (ie. confused, unrespo /Reproduction History /Reproductive History - ruling machine set up operator: /Reproductive Hx- ruling machine set up operator Hx Now No 10/22/24 09:27 Gestational Age (in weeks): EDC: Hx Hx Para Hx Section SAB No 10/22/24 09:27 [facility] Medical History (Updated 10/22/24 @ 09:40 by Brooke Saenz) CPAP (continuous positive airway pressure) dependence Aortic regurgitation Asthma Chest pain Pneumonia History of Holter monitoring History of echocardiogram Cancer Back pain Migraine headache Injury of head and neck Shortness of breath on exertion History of edema Cardiology follow-up encounter History of non-ST elevation myocardial infarction (NSTEMI) (1997) Essential hypertension Hyperlipidemia Obesity Castleman disease Pituitary microadenoma Intermittent palpitations Epigastric pain GERD (gastroesophageal reflux disease) Lumbar stenosis Wears glasses History of steroid therapy Arthritis Pulmonary embolism Restless legs Seizures History of hiatal hernia Non-smoker Leg cramps History of pain when walking Home Medications ?Medication ?Instructions ?Recorded ?Last Taken ?Type cholecalciferol (vitamin D3) 50 50 mcg PO DAILY SUPPLEMENT 02/27/22 03/08/22 History mcg (2,000 unit) tablet (Vitamin D3) lactobacillus combination no.8 3 1 cell PO DAILY SUPPLEMENT 02/27/22 03/08/22 History billion cell capsule spironolactone 50 mg tablet 50 mg PO DAILY DIURETIC 02/27/22 03/08/22 History fluoxetine 20 mg capsule 20 mg PO DAILY 05/22/22 Unknown History multivitamin 1 tab PO DAILY 06/28/22 Unknown History omeprazole 40 mg capsule,delayed 40 mg PO BID #180 caps 08/15/23 02/15/24 06:00 Rx release losartan 25 mg tablet 25 mg PO DAILY 02/04/24 02/15/24 06:00 History furosemide 40 mg tablet 40 mg PO QAM 09/22/24 Unknown History albuterol sulfate 2.5 mg/3 mL 2.5 mg inhalation Q6H PRN wheezing 10/22/24 U nknown History (0.083 %) solution for nebulization albuterol sulfate 90 mcg/actuation 2 puff inhalation Q6H PRN 10/22/24 10/28/24 14:45 History aerosol inhaler shortness of breath or wheezing famotidine 20 mg tablet 20 mg PO QHS 10/22/24 Unknown History gabapentin 300 mg capsule 300 mg PO QHS 10/22/24 Unknown History sucralfate 1 gram tablet 1 g PO DAILY 10/22/24 Unknown History Allergy/AdvReac Type Severity Reaction Status Date / Time bupropion (From Wellbutrin) Allergy Other Verified 10/28/24 13:48 celecoxib (From Celebrex) Allergy Swelling Verified 10/28/24 13:48 codeine Allergy Vomiting Verified 10/28/24 13:48 adhesive AdvReac Other Verified 10/28/24 13:48 Family History Other Cancer Heart disease Hypertension Kidney disease Surgical History (Updated 10/22/24 @ 09:40 by Brooke Saenz) Hx of foot surgery Hx of appendectomy Hx of spinal surgery Hx of colonoscopy History of back surgery (02/2022) History of cardiac catheterization (02/24/22) History of total bilateral knee replacement (TKR) History of skin surgery History of lymph node excision History of adrenal surgery History of hysterectomy Social History Smoking Status: Never smoker Review of Systems (Anesthesia) ROS Narrative System reviewed and no additional complaints, except as documented.
--- NOTE | 2024-10-28 14:45 | EGD_PTH ---
PATIENT: SALVADOR OLIVAS LOC: EN U#:[id number] AGE/SX: 64/F ROOM: RE10/28/[address]: Dr. Salvatore Du DO : 1960 BED: DIS: 10/28/2024 SPEC #: [id number] RECD: 10/28/24 17:57 STATUS: GARRY REAyana #: [id number] EDUARDO: 10/28/24 14:[address]: Salvatore Du DEPT: SURGICAL PATHOLOGY RECD BY: Zaria Laboy ENTERED: 10/29/24 09:29 SP TYPE: EGD BIOPSY [facility] DR: Dr. Adriana Marino MD Tissues: Esophagus, NOS Procedures: Special Stain Group I Surgery Specimen Level IV Alcian Blue/PAS (control) HEADER OPERATION: EGD with biopsy PRE-OP DIAGNOSIS: GERD TISSUE SUBMITTED: Distal esophagus biopsy MICROSCOPIC DIAGNOSIS Distal esophagus, biopsy: Gastroesophageal junction mucosa with mild chronic inflammation. Focal changes of reflux. No evidence of goblet cell metaplasia. See comment. AM. 10/30/2024 COMMENT Alcian blue/PAS stain with matched control supports the above diagnosis. MICROSCOPIC DESCRIPTION Slides are reviewed. GROSS DESCRIPTION Received in fixative is one container labeled with the patient's name and designated Distal esophagus biopsy. The specimen consists of two irregular fragments of light bautista soft tissue that in aggregate measure 1.0 x 0.6 x 0.1 cm. The specimen is totally submitted in one cassette. AM. 10/29/2024 TC:3 CPT:72088,39246
--- NOTE | 2024-10-28 16:02 | PCM.POST.ANE ---
Anesthesia: Postop Eval I Current Vital Signs Temperature: 97.2 F Pulse Rate: 70 Blood Pressure: 103/60 Respiratory Rate: 16 Pulse Ox: 96 Oxygen Delivery Method: Room Air Assessment Airway patent: Yes Spontaneous unlabored respirations: Yes Mental status: Asleep nausea: No Vomiting: No Anesthesia Complication: No Fluid Hydration Crystalloid volume administer (ml): 30 Total IV fluid infused: 30 Progress Note Anesthesia document: Postop Eval 1 completed: Yes
--- NOTE | 2024-10-28 16:04 | OP.CCLET_ITS ---
10/28/2024 Adriana Marino Md Re : Upper GI endoscopy procedure for Vandana Dorado Dear Ned This procedure was performed on Monday, October 28, 2024. My impressions and recommendations are as follows: Impressions : - Esophageal mucosal changes secondary to established short-segment Ramesh's disease. Biopsied. No specimens collected. - Normal stomach. - No gross lesions in the ampulla. Recommendations : - Discharge patient to home. - Continue present medications. My findings are described in the full procedure note, which is enclosed. If I can be of further assistance, please feel free to contact me at . Sincerely, Salvatore Du, 10/28/2024 4:03:59 PM This report has been signed electronically.
--- NOTE | 2024-10-28 16:04 | OP.EGD_ITS ---
Patient Name: Vandana Dorado Procedure Date: 10/28/2024 3:32 PM Date of : 1960 Age: 64 Procedure: Upper GI endoscopy Indications: Heartburn, Follow-up of Ramesh's esophagus Providers: Salvatore Du DO Referring MD: Adriana Marino Md Medicines: Monitored Anesthesia Care Patient Profile: This is a 64 year old female. Refer to note in patient chart for documentation of history and physical. Patient has symptoms of chronic heartburn. Complications: No immediate complications. Procedure: Pre-Anesthesia Assessment: - Prior to the procedure, a History and Physical was performed, and patient medications and allergies were reviewed. The patient is competent. The risks and benefits of the procedure and the sedation options and risks were discussed with the patient. All questions were answered and informed consent was obtained. Patient identification and proposed procedure were verified by the physician in the pre-procedure area. Mental Status Examination: alert and oriented. Airway Examination: normal oropharyngeal airway and neck mobility. Respiratory Examination: clear to auscultation. CV Examination: normal. Prophylactic Antibiotics: The patient does not require prophylactic antibiotics. Prior Anticoagulants: The patient has taken no anticoagulant or antiplatelet agents. ASA Grade Assessment: II - A patient with mild systemic disease. After reviewing the risks and benefits, the patient was deemed in satisfactory condition to undergo the procedure. The anesthesia plan was to use monitored anesthesia care (MAC). Immediately prior to administration of medications, the patient was re-assessed for adequacy to receive sedatives. The heart rate, respiratory rate, oxygen saturations, blood pressure, adequacy of pulmonary ventilation, and response to care were monitored throughout the procedure. The physical status of the patient was re-assessed after the procedure. After obtaining informed consent, the endoscope was passed under direct vision. Throughout the procedure, the patient's blood pressure, pulse, and oxygen saturations were monitored continuously. The Endoscope was introduced through the mouth, and advanced to the second part of duodenum. The upper GI endoscopy was accomplished without difficulty. The patient tolerated the procedure well. Scope In: 3:47:43 PM Scope Out: 3:50:50 PM Total Procedure Duration Time 0 hours 3 minutes 7 seconds Findings: There were esophageal mucosal changes secondary to established short-segment Ramesh's disease present in the lower third of the esophagus. The maximum longitudinal extent of these mucosal changes was 1 cm in length. Mucosa was biopsied with a cold forceps for histology in a targeted manner at intervals of 1 cm in the lower third of the esophagus. One specimen bottle was sent to pathology. Verification of patient identification for the specimen was done. No biopsies or other specimens were collected for this exam. The entire examined stomach was normal. No gross lesions were noted in the ampulla. Impression: - Esophageal mucosal changes secondary to established short-segment Ramesh's disease. Biopsied. No specimens collected. - Normal stomach. - No gross lesions in the ampulla. Recommendation: - Discharge patient to home. - Continue present medications. Procedure Code(s): --- Professional --- 35510, Esophagogastroduodenoscopy, flexible, transoral; with biopsy, single or multiple CPT copyright 2021 [employer]. All rights reserved. The codes documented in this report are preliminary and upon gas cutting machine operator review may be revised to meet current compliance requirements. Salvatore Du DO 10/28/2024 4:03:59 PM This report has been signed electronically. Number of Addenda: 0 Note Initiated On: 10/28/2024 3:32 PM
--- NOTE | 2024-10-28 16:56 | PCM.POSTANE2 ---
Anesthesia Postop Eval I Sum Postop Eval Completion status Anesthesia document: Postop Eval 1 completed: Yes Anesthesia Postop Eval I Summary Anesthesia Postop Eval I Summary: Anesthesia Postop Eval I: Assessment Summary Airway patent Yes 10/28/24 16:03 [email or web address] Spontaneous unlabored Yes 10/28/24 16:03 [email or web address] respirations Mental status Asleep 10/28/24 16:03 [email or web address] nausea No 10/28/24 16:03 [email or web address] Vomiting No 10/28/24 16:03 [email or web address] Anesthesia Postop Eval I: Fluid Summary Crystalloid volume administer 30 10/28/24 16:03 [email or web address] (ml) Colloids volume administered ( ml) Blood Product volume administered (ml) Total IV fluid infused 30 10/28/24 16:03 [email or web address] Anesthesia Postop Eval I: Summary Notes Anesthesia Complication No 10/28/24 16:03 [email or web address] Anesthesia Complication Comment: Post-operative progress note Anesthesia: Postop Eval II Evaluation Mental status: Awake and Calm Pain Level: 0 nausea: No Vomiting: No Complications Anesthesia Complication: No
== END 2024-10-28 16:44 | disposition home or self-care (01) ==
LOC: EN 13:17 → AC 13:25
PROVIDERS: PCP Student in an Organized Health Care Education/Training Program; Referring Provider Student in an Organized Health Care Education/Training Program; Visit Provider Internal Medicine Gastroenterology
PROC: 0DJ08ZZ Inspection of Upper Intestinal Tract, Via Natural or Artificial Opening Endoscopic (ICD-10-PCS; CPT 43235; principal; 2024-10-28 14:40)
DX: K21.00 Gastro-esophageal reflux disease with esophagitis, without bleeding (principal); Z68.41 Body mass index [BMI] 40.0-44.9, adult; K22.70 Barrett's esophagus without dysplasia; R19.7 Diarrhea, unspecified; R53.83 Other fatigue; I10 Essential (primary) hypertension; E66.9 Obesity, unspecified; Z79.899 Other long term (current) drug therapy
CPT/HCPCS: 43239; 88305; 88312; A4216; J2405

== ENCOUNTER → 2024-11-17 | Outpatient (CLI) | payer OTHER, SELFPAY ==
--- NOTE | 2024-11-17 10:33 | NM_ITS ---
CLINICAL: 64-year-old female with history of early satiety and gastroesophageal reflux disease. SEMI-SOLID PHASE 99m Tc SULFUR COLLOID GASTRIC EMPTYING STUDY COMPARISON: None available FINDINGS: The patient was administered 1.1 mCi of 99m Tc sulfur colloid mixed with oatmeal and consumed per os. Image acquisitions in the anterior-posterior projections were obtained for 60 minutes. There is prompt visualization of the stomach. There is no gastroesophageal reflux identified. The T ? linear fit was calculated to be 42.75 minutes, (Normal: 12-56 minutes). NM/Gastric Emptying Study IMPRESSION: 1. NORMAL 99m Tc sulfur colloid semi-solid phase (oatmeal) gastric emptying imaging examination. A. There is normal and preserved semi-solid phase gastric emptying compared to normal controls. (Eamon et al, J Nucl Med Tech 38: 186, 2010). Electronically Signed: Mike Wright DO at 10:03 EST ,
== END | disposition home or self-care (01) ==
PROVIDERS: PCP Student in an Organized Health Care Education/Training Program; Referring Provider Registered Nurse
DX: K21.9 Gastro-esophageal reflux disease without esophagitis (principal); R68.81 Early satiety
CPT/HCPCS: 78264; A9541

== ENCOUNTER 2025-01-16 11:31 | Day surgery (SDC) | payer OTHER, SELFPAY ==
--- NOTE | 2025-01-02 13:35 | PAT.ANE_ITS ---
Pre-Assessment Diagnosis/Proposed Procedure Planned Operative Procedure(s): DEEP HARDWARE REMOVAL WITH CALCANEOCUBOID JOINT ARTHRODESIS AND BONE MARROW ASPIRATE LEFT FOOT Anesthesia History Anesthesia History - retort load expediter: Anesthesia History - retort load expediter Hx Hospitalization No 01/02/25 13:22 Any Problems With Anesthesia No 01/02/25 13:22 Cholinesterase deficiency No 01/02/25 13:22 You/Your Family Experience No 01/02/25 13:22 fever (hyperthermia) with Relationship Recent Exposure to Contagious No 10/28/24 13:48 Disease Does patient have nerve No 01/02/25 13:22 stimulator Patient instructed to have device shut off --Does patient have Pacemaker or ICD? When Was Last Pacemaker Check QUESTION #4 FULL TEXT: You/Your Family Experience fever (hyperthermia) with Anesthesia Last Oral Intake Last Oral intake: Last Oral Intake NPO since Meds taken in AM with sips of water? Meds patient instructed to take am of surgery PONV PONV - retort load expediter: PONV - retort load expediter Female Yes 01/02/25 13:22 HX of Motion Sickness No 01/02/25 13:22 HX of N/V After Surgery No 01/02/25 13:22 Non-Smoker Yes 01/02/25 13:22 Duration of Surgery greater Yes 01/02/25 13:22 than 60 minutes Number of Risk Factors 3 01/02/25 13:22 PONV Score Moderate Risk 01/02/25 13:22 Height & Weight Height & Weight: Anesthesia: Height & Weight Height 5 ft 7 in 11/05/24 09:20 Respiratory Assessment Respiratory Assessment - retort load expediter: Respiratory Tract Infection Hx - retort load expediter Hx Respiratory Tract Infection No 01/02/25 13:22 STOP Sleep Apnea STOP Sleep Apnea - retort load expediter: STOP Sleep Apnea - retort load expediter Hx Hypertension Yes: CONTROLLED WITH MED 01/02/25 13:22 Hx Sleep Apnea Yes 01/02/25 13:22 CPAP Yes: NON COMPLIANT 01/02/25 13:22 BIPAP No 01/02/25 13:22 Do you snore loudly (louder than talking or can be heard Do you often feel tired/ fatigued/ sleepy during daytime? Has anyone observed you stop breathing during sleep? STOP Results Positive 01/02/25 13:22 QUESTION #5 FULL TEXT : Do you snore loudly (louder than talking or can be heard through closed doors)? Tobacco Use History Tobacco Use History - retort load expediter: Tobacco Use History - retort load expediter Tobacco Use Smoking Status Never smoker 01/02/25 13:22 Hx Tobacco Use No 01/02/25 13:22 Years Smoking Packs Smoked per Day Smoking Cessation Date was within the last 15 years Hx Smoking Cessation Date Hx Smoking Cessation Counseling Hematologic Medial History Hematologic Hx - retort load expediter: Hematologic Medical Hx - track sweeper Hx of Blood Transfusion No 01/02/25 13:22 Hx of Transfusion in last 3 No 01/02/25 13:22 Months Date of Last Transfusion (if within last 3 months) Ever experience any problems No 01/02/25 13:22 with transfusion(s)? Specify any problems Hx of Preganancy in last 3 No 01/02/25 13:22 Months Nurse Filling Out Transfusion DSCHRIBER 01/02/25 13:22 & Questions: Date: 01/02/25 01/02/25 13:22 Time: 13:23 01/02/25 13:22 Patient unable to answer at this time (ie. confused, unrespo /Reproduction History /Reproductive History - retort load expediter: /Reproductive Hx- retort load expediter Hx Now Gestational Age (in weeks): EDC: Hx Hx Para Hx Section SAB No 01/02/25 13:22 PFSH Medical History (Updated 01/02/25 @ 13:27 by Brooke Saenz) Ramesh esophagus Restrictive airway disease CPAP (continuous positive airway pressure) dependence Aortic regurgitation Asthma Chest pain Pneumonia History of Holter monitoring History of echocardiogram Cancer Back pain Migraine headache Injury of head and neck Shortness of breath on exertion History of edema Cardiology follow-up encounter History of non-ST elevation myocardial infarction (NSTEMI) (1997) Essential hypertension Hyperlipidemia Obesity Castleman disease Pituitary microadenoma Intermittent palpitations Epigastric pain GERD (gastroesophageal reflux disease) Lumbar stenosis Wears glasses History of steroid therapy Arthritis Pulmonary embolism Restless legs Seizures History of hiatal hernia Non-smoker Leg cramps History of pain when walking Home Medications ?Medication ?Instructions ?Recorded ?Last Taken ?Type cholecalciferol (vitamin D3) 50 50 mcg PO DAILY SUPPLE MENT 02/27/22 03/08/22 History mcg (2,000 unit) tablet (Vitamin D3) lactobacillus combination no.8 3 1 cell PO DAILY SUPPL EMENT 02/27/22 03/08/22 History billion cell capsule spironolactone 50 mg tablet 50 mg PO DAILY DIURETIC 03/08/22 History fluoxetine 20 mg capsule 20 mg PO DAILY 05/22/22 Unkn own History multivitamin 1 tab PO DAILY 06/28/22 Unkn own History omeprazole 40 mg capsule,delayed 40 mg PO BID #180 cap s 08/15/23 02/15/24 06:00 Rx release losartan 25 mg tablet 25 mg PO DAILY 02/04/24 0301/19 06:00 History furosemide 40 mg tablet 40 mg PO QAM 09/22/24 Unknow n History albuterol sulfate 2.5 mg/3 mL 2.5 mg inhalation Q6H VT N wheezing 10/22/24 Unknown History (0.083 %) solution for nebulization albuterol sulfate 90 mcg/actuation 2 puff inhalation Q 6H PRN 10/22/24 10/28/24 14:45 History aerosol inhaler shortness of breath or wheez ing phentermine 37.5 mg capsule 37.5 mg PO QDAY #30 caps 1 01/06/24 Unknown Rx fluticasone fur. 200 mcg-umeclid 1 ea inhalation DAILY 01/02/25 Unknown History 62.5 mcg-vilant 25 mcg inhalat.powder (Trelegy Ellipta) Allergy/AdvReac Type Severity Reaction Status Date / Time bupropion (From Wellbutrin) Allergy Other Verified 01/02/25 13:18 celecoxib (From Celebrex) Allergy Swelling Verified 01/02/25 13:18 codeine Allergy Vomiting Verified 01/02/25 13:18 adhesive AdvReac Other Verified 01/02/25 13:18 Family History Other Cancer Heart disease Hypertension Kidney disease Surgical History (Updated 01/02/25 @ 13:27 by Brooke Saenz) History of esophagogastroduodenoscopy (EGD) Hx of foot surgery Hx of appendectomy Hx of spinal surgery Hx of colonoscopy History of back surgery (02/2022) History of cardiac catheterization (02/24/22) History of total bilateral knee replacement (TKR) History of skin surgery History of lymph node excision History of adrenal surgery History of hysterectomy Social History (Reviewed 09/22/24 @ 10:41 by Maira Montero Smoking Status: Never smoker Audit: Pertinent Findings Pertinent Findings EKG Perinent findings: 02/05/2024 sinus bradycardia 58 bpm Consult pertinent findings: Cardiology 06/28/2022 hypertension continue medications Recommendation Anesthesia Recommendation Anesthesia recommendation: OPTIMIZED for anesthesia
[2025-01-16] VITALS (11 sets, daily range): BP systolic 119–151; BP diastolic 62–85; PULSE 59–74; RESP 16–20; TEMP 35.9–36.2; O2SAT 94–100; BMI 41.6
[2025-01-16] MEDS: Acetaminophen 500 MG Tablet 1000 MG PO (12:15)
[2025-01-16] MEDS: 0.9% Normal Saline (1000mL) 1,000 ML 15 ML IV (12:15)
[2025-01-16] MEDS: Gabapentin 600 MG Tablet PO (12:16)
--- NOTE | 2025-01-16 12:30 | PRE.ANES_ITS ---
ASA Classification* ASA Classification ASA Classification: 3 Assessment & Plan Anesthesia* Anesthesia Assessment Anesthesia Assessment: Discussed sedation and/or anesthesia options, risks, benefits, and alternatives with patient/parents/legal guardian/POA. Questions invited. The patient/parents/legal guardian/POA seems to understand and agrees to proceed with anesthesia plan. Reviewed the physical assessment, medical history, allergy history and patient home medications list prior to surgery/procedure/anesthetic and documented any changes. Performed airway and anesthesia risk assessments. Anesthesia Type Anesthesia Type: General History Source History Obtained from:: Patient, Chart and Significant Other (spouse) Anesthesia Focused Assessment* Temperature: 97 F Pulse Rate: 74 Blood Pressure: 151/84 Respiratory Rate: 16 Pulse Ox: 95 Oxygen Delivery Method: Room Air Airway Assessment Mouth opens: 2 cm Mallampati Score: II Teeth Condition: Intact and Caps/Crowns Neck Range of motion (ROM): Full ROM Focused Labs Anesthesia Preop lab: CBC WBC 6.8 K/mm3 (4.4-11.0) 09/22/24 11:43 09/22/24 RBC 5.02 M/mm3 (4.2-5.4) 09/22/24 11:43 09/22/24 Hgb 14.2 g/dL (12.0-15.0) 09/22/24 11:43 09/22/24 Hct 45.2 % (37-47) 09/22/24 11:43 09/22/24 Plt Count 250 K/mm3 (150-450) 09/22/24 11:43 09/22/24 CHEMISTRY Potassium 3.8 mmol/L (3.5-5.1) 09/22/24 11:43 09/22/24 Sodium 136 mmol/L (136-145) 09/22/24 11:43 09/22/24 Magnesium 2.1 mg/dL (1.6-2.6) 02/06/24 16:24 02/06/24 BUN 18 mg/dL (7-18) 09/22/24 11:43 09/22/24 Creatinine 0.84 mg/dL (0.55-1.02) 09/22/24 11:43 09/22/24 Glucose 96 mg/dL (74-106) 09/22/24 11:43 09/22/24 POC Glucose 81 mg/dL (74-106) 02/15/24 08:42 02/15/24 TSH 1.440 uIU/mL (0.358-3.740) 09/22/24 11:43 08/27 07/19 COAG Pre-Assessment Diagnosis/Proposed Procedure Planned Operative Procedure(s): DEEP HARDWARE REMOVAL WITH CALCANEOCUBOID JOINT ARTHRODESIS AND BONE MARROW ASPIRATE LEFT FOOT Anesthesia History Anesthesia History - autocad electrical designer: Anesthesia History - autocad electrical designer Hx Hospitalization No 01/02/25 13:22 Any Problems With Anesthesia No 01/02/25 13:22 Cholinesterase deficiency No 01/02/25 13:22 You/Your Family Experience No 01/02/25 13:22 fever (hyperthermia) with Relationship Recent Exposure to Contagious No 01/16/25 12:02 Disease Does patient have nerve No 01/02/25 13:22 stimulator Patient instructed to have device shut off --Does patient have Pacemaker No 01/16/25 12:02 or ICD? When Was Last Pacemaker Check QUESTION #4 FULL TEXT: You/Your Family Experience fever (hyperthermia) with Anesthesia Last Oral Intake Last Oral intake: Last Oral Intake NPO since 08:00 01/16/25 12:02 Meds taken in AM with sips of Yes 01/16/25 12:02 water? Meds patient instructed to see mar 01/16/25 12:02 take am of surgery PONV PONV - autocad electrical designer: PONV - autocad electrical designer Female Yes 01/02/25 13:22 HX of Motion Sickness No 01/02/25 13:22 HX of N/V After Surgery No 01/02/25 13:22 Non-Smoker Yes 01/02/25 13:22 Duration of Surgery greater Yes 01/02/25 13:22 than 60 minutes Number of Risk Factors 3 01/02/25 13:22 PONV Score Moderate Risk 01/02/25 13:22 Height & Weight Height & Weight: Anesthesia: Height & Weight Height 5 ft 7 in 01/16/25 12:02 Weight: 120.656 kg 01/16/25 12:02 Body Mass Index (BMI) 41.6 01/16/25 12:02 Respiratory Assessment Respiratory Assessment - autocad electrical designer: Respiratory Tract Infection Hx - autocad electrical designer Hx Respiratory Tract Infection No 01/02/25 13:22 STOP Sleep Apnea STOP Sleep Apnea - autocad electrical designer: STOP Sleep Apnea - autocad electrical designer Hx Hypertension Yes: CONTROLLED WITH MED 01/02/25 13:22 Hx Sleep Apnea Yes 01/02/25 13:22 CPAP Yes: NON COMPLIANT 01/02/25 13:22 BIPAP No 01/02/25 13:22 Do you snore loudly (louder than talking or can be heard Do you often feel tired/ fatigued/ sleepy during daytime? Has anyone observed you stop breathing during sleep? STOP Results Positive 01/02/25 13:22 QUESTION #5 FULL TEXT : Do you snore loudly (louder than talking or can be heard through closed doors)? Tobacco Use History Tobacco Use History - autocad electrical designer: Tobacco Use History - autocad electrical designer Tobacco Use Smoking Status Never smoker 01/02/25 13:22 Hx Tobacco Use No 01/02/25 13:22 Years Smoking Packs Smoked per Day Smoking Cessation Date was within the last 15 years Hx Smoking Cessation Date Hx Smoking Cessation Counseling Hematologic Medial History Hematologic Hx - autocad electrical designer: Hematologic Medical Hx - rn clinical documentation Hx of Blood Transfusion No 01/02/25 13:22 Hx of Transfusion in last 3 No 01/02/25 13:22 Months Date of Last Transfusion (if within last 3 months) Ever experience any problems No 01/02/25 13:22 with transfusion(s)? Specify any problems Hx of Preganancy in last 3 No 01/02/25 13:22 Months Nurse Filling Out Transfusion DSCHRIBER 01/02/25 13:22 & Questions: Date: 01/02/25 01/02/25 13:22 Time: 13:23 01/02/25 13:22 Patient unable to answer at this time (ie. confused, unrespo /Reproduction History /Reproductive History - autocad electrical designer: /Reproductive Hx- autocad electrical designer Hx Now Gestational Age (in weeks): EDC: Hx Hx Para Hx Section SAB No 01/02/25 13:22 Active Medications Active Medications: Current Medications Generic Name Dose Route Start Last Admin Trade Name Freq PRN Reason Stop Dose Admin Acetaminophen 1,000 mg 01/16/25 13:00 01/16/25 12:15 Acetaminophen 500 Mg Tablet PO 01/16/25 13:01 1,000 mg X1 ONE Administration Gabapentin 600 mg 01/16/25 13:00 01/16/25 12:16 Gabapentin 600 Mg Tablet PO 01/16/25 13:01 600 mg X1 ONE Administration Cefazolin Sodium 2 gm/ N/A 20 mls @ 400 mls/hr 01/16/25 13:00 IV 01/16/25 13:02 PREOP ONE Sodium Chloride 1,000 mls @ 15 mls/hr 01/16/25 11:45 01/16/25 12:15 IV 01/22/25 01:04 15 mls/hr .Q48H CHAO Administration Protocol Insulin Human Lispro 1 - 6 unit 01/16/25 13:00 Insulin Lispro 100 Unit/Ml Insuln.Pen SC 01/16/25 19:00 Q4H PRN PRN BG>/= 180, SEE PROTOCOL Protocol [facility] Medical History (Updated 01/02/25 @ 13:27 by Brooke Saenz) Ramesh esophagus Restrictive airway disease CPAP (continuous positive airway pressure) dependence Aortic regurgitation Asthma Chest pain Pneumonia History of Holter monitoring History of echocardiogram Cancer Back pain Migraine headache Injury of head and neck Shortness of breath on exertion History of edema Cardiology follow-up encounter History of non-ST elevation myocardial infarction (NSTEMI) (1997) Essential hypertension Hyperlipidemia Obesity Castleman disease Pituitary microadenoma Intermittent palpitations Epigastric pain GERD (gastroesophageal reflux disease) Lumbar stenosis Wears glasses History of steroid therapy Arthritis Pulmonary embolism Restless legs Seizures History of hiatal hernia Non-smoker Leg cramps History of pain when walking Home Medications ?Medication ?Instructions ?Recorded ?Last Taken ?Type cholecalciferol (vitamin D3) 50 50 mcg PO DAILY SUPPLE MENT 02/27/22 03/08/22 History mcg (2,000 unit) tablet (Vitamin D3) lactobacillus combination no.8 3 1 cell PO DAILY SUPPL EMENT 02/27/22 03/08/22 History billion cell capsule spironolactone 50 mg tablet 50 mg PO DAILY DIURETIC 03/08/22 History fluoxetine 20 mg capsule 20 mg PO DAILY 05/22/22 Unkn own History multivitamin 1 tab PO DAILY 06/28/22 Unkn own History omeprazole 40 mg capsule,delayed 40 mg PO BID #180 cap s 08/15/23 01/16/25 Rx release losartan 25 mg tablet 25 mg PO DAILY 02/04/2412/28 History furosemide 40 mg tablet 40 mg PO QAM 09/22/24 Unknow n History albuterol sulfate 2.5 mg/3 mL 2.5 mg inhalation Q6H LA N wheezing 10/22/24 Unk nown History (0.083 %) solution for nebulization albuterol sulfate 90 mcg/actuation 2 puff inhalation Q 6H PRN 10/22/24 10/28/24 14:45 History aerosol inhaler shortness of breath or wheez ing phentermine 37.5 mg capsule 37.5 mg PO QDAY #30 caps 1 01/06/24 Unknown Rx fluticasone fur. 200 mcg-umeclid 1 ea inhalation DAILY 01/02/25 01/16/25 History 62.5 mcg-vilant 25 mcg inhalat.powder (Trelegy Ellipta) Allergy/AdvReac Type Severity Reaction Status Date / Time bupropion (From Wellbutrin) Allergy Other Verified 01/16/25 12:00 celecoxib (From Celebrex) Allergy Swelling Verified 01/16/25 12:00 codeine Allergy Vomiting Verified 01/16/25 12:00 adhesive AdvReac Other Verified 01/16/25 12:00 Family History Other Cancer Heart disease Hypertension Kidney disease Surgical History (Updated 01/02/25 @ 13:27 by Brooke Saenz) History of esophagogastroduodenoscopy (EGD) Hx of foot surgery Hx of appendectomy Hx of spinal surgery Hx of colonoscopy History of back surgery (02/2022) History of cardiac catheterization (02/24/22) History of total bilateral knee replacement (TKR) History of skin surgery History of lymph node excision History of adrenal surgery History of hysterectomy Social History Smoking Status: Never smoker Review of Systems (Anesthesia) ROS Narrative System reviewed and no additional complaints, except as documented.
[2025-01-16 12:49] LABS: Bedside Glucose 97 mg/dL (74-106)
[2025-01-16] MEDS: Cefazolin 2 GM in Syringe IV (13:44)
[2025-01-16] MEDS: Heparin 10,000 UNITS/10 ML Vial 10000 UNITS (13:48)
[2025-01-16] MEDS: Thrombin 5,000 IU Kit (PSA) 5,000 IU Vial 5000 IU TOPICAL (13:48)
[2025-01-16] MEDS: Calcium Chloride 1 GM/10 ML Syringe (13:48)
--- NOTE | 2025-01-16 13:52 | RAD_ITS ---
EXAM: INTRAOPERATIVE FLUOROSCOPY CLINICAL HISTORY: Pain COMPARISON: No priors TECHNIQUE: 6 intraoperative images are submitted for review. FINDINGS: The patient is status post ORIF utilizing multiple screws and staple transfixing a tarsa and lcalcaneal fractures fracture. RAD/Ankle 2 Views IMPRESSION: As above Reading Location: [facility]
[2025-01-16] MEDS: Bupivacaine Mpf 0.5% 30 ML VIAL (15:04)
--- NOTE | 2025-01-16 15:20 | PCM.POST.ANE ---
Anesthesia: Postop Eval I Current Vital Signs Temperature: 97.2 F Pulse Rate: 67 Blood Pressure: 131/85 Respiratory Rate: 20 Pulse Ox: 94 Assessment Airway patent: Yes Spontaneous unlabored respirations: Yes nausea: No Vomiting: No Anesthesia Complication: No Fluid Hydration Crystalloid volume administer (ml): 1,000 Total IV fluid infused: 1,000 Progress Note Anesthesia document: Postop Eval 1 completed: Yes
--- NOTE | 2025-01-16 15:23 | PCM.OPRPT ---
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 Pain, left foot 2. Painful internal hardware, left foot 3. Pseudoarthrosis, left foot Post-Operative Diagnosis: 1. Pain, left foot 2. Painful internal hardware, left foot 3. Pseudoarthrosis, left foot Surgery/Procedure Performed: Procedure #1: Bone marrow aspirate concentrate, left lower extremity Procedure #2: Deep hardware removal, left lower extremity Procedure #3: Calcaneocuboid joint arthrodesis, left foot Procedure #4: Application of posterior splint, left lower extremity warehouse consultant: Yes Wash Oil Pump Operator: Stefan Heaton PGY1 Tasks completed by economic research assistant: Opening & closing and Implanting device Additional optometrist assistant?: No Type of Anesthesia: General/Regional and Local RN Documented Start/Stop Times: Operation Date: 01/16/25 13:00 Case Time Into Pre-Op 01/16/25 11:39 Anesthesia Start 01/16/25 13:32 Into Room 01/16/25 13:32 Procedure Start 01/16/25 13:48 Procedure End 01/16/25 15:19 Anesthesia End 01/16/25 15:22 Out of Room 01/16/25 15:22 Procedure Start Time: 13:48 Procedure Stop Time: 15:19 Select all DRAINS/GRAFTS/IMPLANTS that apply: Graft Graft details: BMAC, demineralized bone matrix, via flow and Implanted device Implanted device details: [place] staple Special Medications: Per anesthesia Estimated Blood Loss: 50 mL Fluids Replaced: Per anesthesia Specimen collected: No Description of surgery: Indications For Operation: Ms. Dorado is a 64-year-old female who was admitted to [facility] for for left foot surgery consisting of hardware removal with revision of the calcaneocuboid joint due to pseudoarthrosis after procedure. Patient originally went under a triple arthrodesis of left lower extremity. She has been doing well and walking pain-free. Over the last 3 months the patient has been having shooting pains and presents the office today for further evaluation. Upon plain from radiographs or showed loosening of one of the screws in the calcaneocuboid plate. Due to this hardware failure was deemed necessary to take the patient operating room to remove the hardware and revise the pseudoarthrosis of the calcaneocuboid joint. All risk and benefits were discussed with patient great detail. She was understanding of this. Chart review consent signed. Due to the pseudoarthrosis and loosening hardware of the calcaneocuboid joint of the left lower extremity it was deemed necessary at this time to take patient operating room performed above procedure to help future joint and relieve her constant pain.. The nature of the problem, anticipated procedures, postop recovery/convalences and risk/complications include but not limited to infection, wound healing complications, digital amputation, hypertrophic scarring, numbness, tingling, chronic pain, CRPS, over and under correction, recurrence of deformity, DVT and or PE and the need for further surgery have been discussed in great detail with the patient. All questions have been answered to the patient's satisfaction. There are no guarantees given as to the outcome of the procedure. Description of Procedure: Under mild sedation, the patient was brought into the operating room and placed on the operating table in supine position. Once the patient was under general anesthesia with [place] mask airway, the left lower extremity was blocked using approximately 10 cc 0.5% Marcaine plain, the patient did receive a popliteal block by anesthesia in the PACU prior to the procedure. Please see anesthesia notes for further detail.. Next, a well-padded calf tourniquet was applied to the left lower extremity. Next, the left lower extremity was prepped and draped in normal aseptic manner. Next, a timeout was then undertaken verifying the correct patient, extremity, visibility of preoperative markings, availability of the equipment. Procedure #1: Bone marrow aspirate concentrate, left lower extremity Next, attention was directed to the left lower extremity lateral calcaneus. Using a Jamshidi needle and mallet the junction needle was inserted to the lateral portion of the calcaneal wall. Once in the central calcaneus a 60 cc of bone marrow aspirate concentrate were harvested passed back table to be spun down for PPP, bone marrow aspirate concentrate injection to be used later on in the case. The Jamshidi needle was removed and the stab incision was flushed with copious normal saline and closed with 2-0 nylon in simple erupted suture technique. Next, attention was directed to the left lower extremity. Using a 4 inch Esmarch, left lower extremity was exsanguinated and elevated to 60 degrees for 1 minute. Procedure #2: Deep hardware removal, left lower extremity Next, attention was directed to the lateral foot, the pre-existing incision that was used for the subtalar joint CC joint arthrodesis prior was marked out. A full-thickness incision down to subcutaneous tissue was performed. Continued blunt dissection was carried down to level of the calcaneocuboid plate. There showed loosening and backing out of the distal plantar screw. Using the Bubble[employer]ise hardware removal all 4 screws were backed out without incident and passed the back table. Next, using a [place] elevator, the flat plate was removed without incident. All bony prominences were removed via sharp rongeur and bone rasp. The area was flushed with copious normal saline. Procedure #3: Calcaneocuboid joint arthrodesis, left foot Next, attention was directed back to the pseudoarthrosis over the calcaneocuboid joint. Using large cam fluoroscopy the area was marked out. Using a combination of osteotome and rongeur the pseudoarthrosis was removed. The calcaneus and base of the cuboid were reprepped using a combination of osteotome and curettes. The joint was flushed with copious normal saline. Using a 2 oh drill, the joint was fenestrated. The joint was packed with a combination of bone marrow aspirate concentrate and demineralized bone matrix. Once adequate prep was completed. A large 25 x 20 mm staple was placed across the joint for dynamic compression. A light flash was performed with copious of normal saline. At this time the tourniquet was deflated and all bleeders were cauterized and ligated as necessary. The deep layer was reapproximated closed using 2-0 Vicryl in running locking suture technique. The subcutaneous layer was reapproximated closed using 3-0 Monocryl and running suture technique. The skin was reapproximated closed using 2-0 nylon in horizontal mattress suture technique. Next, 1 cc of via flow was injected into the incision. Approximately 5 cc of bone marrow aspirate concentrate were injected at the level of the arthrodesis site. The incision was sprayed with platelet poor plasma. Procedure #4: Application of posterior splint, left lower extremity The incision was dressed with Betadine soaked Adaptic dry sterile dressing and a double layer Cooley AO splint at 90 degrees was donned to the left lower extremity. The patient tolerated the procedure and anesthesia well and apparent satisfactory condition and was transported to the PACU for further monitoring prior to discharge home. Vital signs stable and vascular status intact to all digits bilateral. Post Operative Plan: Weightbearing: Patient will be nonweightbearing to left lower extremity with assistive knee scooter and or crutches. Full weightbearing right lower extremity. Antibiotics: 3 g Ancef through the IV DVT Prophylaxis: 81 mg aspirin Luz: None Dressing: Platelet poor plasma, Betadine soaked Adaptic, dry sterile dressing double layer Cooley AO splint at 90 degrees left lower extremity. X-Rays: Post-operative films taken on the operating room. Pain Medication: Percocet 5/325, Flexeril 10 mg Follow-up: Patient will follow-up in 1 week to 10 days in office for dressing change. Surgical Findings: 1. Evidence of pseudoarthrosis to the CC joint of the left lower extremity. 2. Evidence of good revision calcaneocuboid joint arthrodesis. Complications Complications: No Admit VTE Documentation VTE Present on Admission: No VTE Mechan Device Prophylaxis: SCD's VTE Pharm Prophylaxis ordered?: Yes
--- NOTE | 2025-01-16 16:04 | POSTOPAN2_ITS ---
Anesthesia Postop Eval I Sum Postop Eval Completion status Anesthesia document: Postop Eval 1 completed: Yes Anesthesia Postop Eval I Summary Anesthesia Postop Eval I Summary: Anesthesia Postop Eval I: Assessment Summary Airway patent Yes 01/16/25 15:28 MEDICAL ASSISTING PROGRAM DIRECTOR.[email or web address] Spontaneous unlabored Yes 01/16/25 15:28 MEDICAL ASSISTING PROGRAM DIRECTOR.[email or web address] respirations Mental status nausea No 01/16/25 15:28 MEDICAL ASSISTING PROGRAM DIRECTOR.CSIR Vomiting No 01/16/25 15:28 MEDICAL ASSISTING PROGRAM DIRECTOR.CSIR Anesthesia Postop Eval I: Fluid Summary Crystalloid volume administer 1,000 01/16/25 15:28 MEDICAL ASSISTING PROGRAM DIRECTOR.CSIR (ml) Colloids volume administered ( ml) Blood Product volume administered (ml) Total IV fluid infused 1,000 01/16/25 15:28 MEDICAL ASSISTING PROGRAM DIRECTOR.CSIR Anesthesia Postop Eval I: Summary Notes Anesthesia Complication No 01/16/25 15:28 MEDICAL ASSISTING PROGRAM DIRECTOR.CSIR Anesthesia Complication Comment: Post-operative progress note Anesthesia: Postop Eval II Evaluation Mental status: Awake Pain Level: 0 nausea: No Vomiting: No
--- NOTE | 2025-01-16 16:04 | PCM.POSTANE2 ---
Anesthesia Postop Eval I Sum Postop Eval Completion status Anesthesia document: Postop Eval 1 completed: Yes Anesthesia Postop Eval I Summary Anesthesia Postop Eval I Summary: Anesthesia Postop Eval I: Assessment Summary Airway patent Yes 01/16/25 15:28 DICE [email or web address] Spontaneous unlabored Yes 01/16/25 15:28 DICE PERSON.CSIR respirations Mental status nausea No 01/16/25 15:28 DICE PERSON.CSIR Vomiting No 01/16/25 15:28 DICE PERSON.CSIR Anesthesia Postop Eval I: Fluid Summary Crystalloid volume administer 1,000 01/16/25 15:28 DICE PERSON.CSIR (ml) Colloids volume administered ( ml) Blood Product volume administered (ml) Total IV fluid infused 1,000 01/16/25 15:28 DICE PERSON.CSIR Anesthesia Postop Eval I: Summary Notes Anesthesia Complication No 01/16/25 15:28 DICE PERSON.CSIR Anesthesia Complication Comment: Post-operative progress note Anesthesia: Postop Eval II Evaluation Mental status: Awake Pain Level: 0 nausea: No Vomiting: No
== END 2025-01-16 17:31 | disposition home or self-care (01) ==
LOC: SDC 11:40 → AC 11:40
PROVIDERS: PCP Student in an Organized Health Care Education/Training Program; Referring Provider Podiatrist Foot & Ankle Surgery; Visit Provider Podiatrist Foot & Ankle Surgery
PROC: (CPT 28740; principal; 2025-01-16 12:45)
DX: T84.84XA Pain due to internal orthopedic prosthetic devices, implants and grafts, initial encounter (principal); Z68.41 Body mass index [BMI] 40.0-44.9, adult; E66.01 Morbid (severe) obesity due to excess calories; M96.0 Pseudarthrosis after fusion or arthrodesis; T84.293A Other mechanical complication of internal fixation device of bones of foot and toes, initial encounter; X58.XXXA Exposure to other specified factors, initial encounter; I10 Essential (primary) hypertension; E78.5 Hyperlipidemia, unspecified; Z79.899 Other long term (current) drug therapy
CPT/HCPCS: 28740; 20680; 38232; 01480; 64445; 73600; 76000; 82962; C1713; J2405

== ENCOUNTER 2025-03-24 13:24 | Outpatient (RCR) | payer OTHER, SELFPAY | END 2025-03-25 23:59 | LOC: NS 13:24 | PROVIDERS: PCP Student in an Organized Health Care Education/Training Program; Referring Provider Nurse Practitioner Acute Care; Visit Provider Nurse Practitioner Acute Care | DX: Z71.3 Dietary counseling and surveillance (principal); E66.9 Obesity, unspecified; E11.9 Type 2 diabetes mellitus without complications; Z68.41 Body mass index [BMI] 40.0-44.9, adult | CPT/HCPCS: 97802 ==

== ENCOUNTER 2025-04-29 12:38 | Outpatient (RCR) | payer OTHER, SELFPAY | END 2025-05-25 23:59 | LOC: NS 12:38 | PROVIDERS: PCP Student in an Organized Health Care Education/Training Program; Referring Provider Nurse Practitioner Acute Care; Visit Provider Nurse Practitioner Acute Care | DX: Z71.3 Dietary counseling and surveillance (principal); E11.9 Type 2 diabetes mellitus without complications; E66.9 Obesity, unspecified; Z68.41 Body mass index [BMI] 40.0-44.9, adult | CPT/HCPCS: 97803 ==

== ENCOUNTER 2025-06-02 13:06 | Outpatient (RCR) | payer OTHER, SELFPAY | END 2025-06-25 23:59 | LOC: NS 13:06 | PROVIDERS: PCP Student in an Organized Health Care Education/Training Program; Referring Provider Nurse Practitioner Acute Care; Visit Provider Nurse Practitioner Acute Care | DX: Z71.3 Dietary counseling and surveillance (principal); E11.9 Type 2 diabetes mellitus without complications; E66.9 Obesity, unspecified; Z68.39 Body mass index [BMI] 39.0-39.9, adult | CPT/HCPCS: 97803 ==